=== PATIENT | female | born 1990 | race Caucasian/White ===

== ENCOUNTER 2023-12-25 16:27 | Inpatient (IN) | payer BC, SELFPAY ==
[2023-12-25] VITALS (12 sets, daily range): BP systolic 91–124; BP diastolic 66–94; PULSE 69–108; RESP 16–18; TEMP 36.3–36.9; O2SAT 100; BMI 25.1; BMI 22.0
--- NOTE | 2023-12-25 17:07 | ED.GENADULT ---
HPI - General Adult General Chief complaint: Unspecified Complaint, Adult Stated complaint: lab work Time Seen by Provider: 12/25/23 16:31 History of Present Illness HPI narrative: This 33-year-old female comes in requesting lab work because of a overdose of Tylenol. She had a severe toothache and was taking 4 extra-strength Tylenol every 4 hours starting 4 days ago. The next day, 3 days ago, she took 6 tablets every 4 hours until evening. She stopped taking Tylenol at the end of 3 days ago. Two days ago she was not feeling well with nausea and some vomiting. Today she states that she has no nausea and vomiting and also does not have a toothache any longer. She has not been able to get in to see her dentist yet. She states that she does not drink alcohol. She reports that she is not able to take ibuprofen and did not have awareness that this was an overdose of Tylenol. A friend spoke with her recently and said she should have labs done because of liver toxicity from Tylenol. Related Data Home Medications Medication Instructions Recorded Confirmed control PO 06/10/23 Allergies Allergy/AdvReac Type Severity Reaction Status Date / Time No Known Drug Allergies Allergy Verified 06/10/23 17:04 Review of Systems Status of ROS: Reports: 10 or more systems reviewed and unremarkable except as noted in History and below Narrative: Constitutional: No fevers, no weight gain or loss. Eyes: No discharge. No vision changes. HENT: No congestion, no sore throat, no ear pain. Cardiovascular: No chest pain, no palpitations. Respiratory: No shortness of breath, no wheezes, no cough. Gastrointestinal: No abdominal pain . Currently no vomiting or nausea but she did have these a couple days ago. Genitourinary: No dysuria, no hematuria. Musculoskeletal: Normal range of motion. Skin: No rashes, no pruritis. Neurological: No dizziness, weakness, sensory change, speech change. Endo/Heme/Allergies: No bruising or bleeding. No polydipsia. Pysch: no suicidality, no anxiety, no insomnia. All other systems reviewed and are negative. PFSH PFSH Social History Non-prescribed substance use: denies use Exam Narrative: Exam Narrative: Constitutional: Well-developed, well-nourished, no acute distress. HEENT: Normocephalic, atraumatic. Neck: Normal range of motion. Nontender. Supple. Heart: Regular. No murmurs. Tachycardia. Intact distal pulses. Lungs: Clear to auscultation. No chest discomfort. No wheezes, rhonchi, or rales. Abdomen: Normal bowel sounds. Nontender. No rebound tenderness. Genitalia: Deferred. Back: No midline tenderness. Normal range of motion. Extremities: Normal range of motion. No injury. Skin: Intact. No rash. Warm. No erythema or pallor. Neurologic: No altered sensation. No weakness. Alert and oriented. Psychiatric: No suicidality. No anxiety or depression. No insomnia. Nursing notes and vitals signs are reviewed. Const: Vital Signs, click to edit/add: Vital Signs - 24 hr 12/25/23 16:32 Temperature 97.4 F L Pulse Rate [Pulse Oximeter] 108 H Respiratory Rate 18 Blood Pressure [Le ft Upper Arm] 91/66 Pulse Oximetry 100 Oxygen Delivery Me thod Room Air Course Vital Signs Vital signs: Initial Vital Signs Temperature 97.4 F L 12/25/23 16:32 Temperature Source Temporal Artery Scan 12/25/23 16:32 Pulse Rate 108 H 12/25/23 16:32 Respiratory Rate 18 12/25/23 16:32 Blood Pressure 91/66 12/25/23 16:32 Blood Pressure Mean 74 12/25/23 16:32 Blood Pressure Position Sitting 12/25/23 16:32 Pulse Oximetry 100 12/25/23 16:32 Oxygen Delivery Method Room Air 12/25/23 16:32 Vital Signs Temperature 97.4 F L 12/25/23 16:32 Pulse Rate 108 H 12/25/23 16:32 Respiratory Rate 18 12/25/23 16:32 Blood Pressure 91/66 12/25/23 16:32 Pulse Oximetry 100 12/25/23 16:32 Oxygen Delivery Method Room Air 12/25/23 16:32 Temperature 97.4 F L 12/25/23 16:32 Pulse Rate 108 H 12/25/23 16:32 Respiratory Rate 18 12/25/23 16:32 Blood Pressure 91/66 12/25/23 16:32 Pulse Oximetry 100 12/25/23 16:32 Oxygen Delivery Method Room Air 12/25/23 16:32 Medical Decision Making MDM Narrative Medical decision making narrative: This patient took approximately 12 g of Tylenol 5 days ago and approximately 18 g the next day. Labs are acquired here and do show evidence of injury to her liver. Notable labs show an AST at 1658 and ALT at 1371. Her creatinine is 2.7. INR returns at 1.3. She does not have an anion gap and her lactate and amylase are normal. Her amylase is just a couple points above the normal range actually. I spoke with poison Control regarding these findings who recommended admission into the hospital overnight to receive acetylcysteine until liver enzymes improved from these current numbers. She can be discharged home after that. I spoke with Dr. Love regarding this and he agrees to this plan. Lab Data Labs: Lab Results 12/25/23 12/25/23 12/25/23 Range/Units 17:04 17:04 17:04 WBC 2.92 L (4.50-11.00) K/uL RBC 4.06 (4.00-5.20) m/uL Hgb 12.5 (12.0-16.0) gm/dL Hct 38.5 (33.0-51.0) % MCV 95 (80-100) fL MCH 31 (26-34) pg MCHC 33 (32-36) gm/dL RDW Coeff of [place] 16.6 H (11.5-15.5) % Plt Count 250 (140-440) K/uL Neut % (Auto) 54.5 (42.0-72.0) % Lymph % (Auto) 39.0 (20-44) % [place] % (Auto) 6.2 (0.0-11.0) % Eos % (Auto) 0.0 (0.0-7.0) % Baso % (Auto) 0.0 (0.0-3.0) % Neut # (Auto) 1.60 L (1.7-7.0) K/uL Lymph # (Auto) 1.10 (0.90-2.90) K/uL [place] # (Auto) 0.20 (0.00-0.90) K/UL Eos # (Auto) 0.00 (0.00-0.50) K/uL Baso # (Auto) 0.00 (0.00-0.30) K/uL Abs Immat Gran (auto) 0.00 (0.00-0.30) K/uL Imm/Tot Granulo (auto) 0.3 % INR 1.31 H (0.91-1.10) Sodium 137 (135-149) mmol/L Potassium 3.9 (3.6-5.1) mmol/L Chloride 110 (96-114) mmol/L Carbon Dioxide 14 L (20-32) mmol/L Anion Gap 13 (7-15) mEq/L BUN 33 H (5-24) mg/dL Creatinine 2.7 H (0.5-1.5) mg/dL Estimated Creat Clear 30.45 Estimated GFR 23 ml/min Glucose 102 (60-115) mg/dL Lactate (0.5-1.9) mmol/L Calcium 9.1 (8.4-10.6) mg/dL Total Bilirubin 0.9 Cancelled (0.1-1.5) mg/dL Direct Bilirubin 0.6 H Cancelled (0.0-0.5) mg/dL AST 1658 H (12-35) U/L ALT (4-35) U/L Alkaline Phosphatase (40-150) U/L Total Protein (6.0-8.3) g/dL Albumin (3.3-5.0) g/dL Amylase (18-89) U/L Lipase (23-300) U/L Urine Color (Yellow) Urine Appearance (Clear) Urine pH (5.0-8.5) Ur Specific [place] (1.000-1.030) Urine Protein (Negative) Urine Glucose (UA) (Negative) Urine Ketones (Negative) Urine Blood (Negative) Urine Nitrite (Negative) Urine Bilirubin (Negative) Urine Urobilinogen (0.2-1.0) Ur Leukocyte Esterase (Negative) Urine RBC (0-2) Urine WBC (0-5) Ur Squamous Epith Cells (None-Few) Amorphous Sediment (None) Urine Bacteria (None) Acetaminophen (10.0-30.0) ug/mL 12/25/23 12/25/23 12/25/23 Range/Units 17:04 17:04 17:04 WBC (4.50-11.00) K/uL RBC (4.00-5.20) m/uL Hgb (12.0-16.0) gm/dL Hct (33.0-51.0) % MCV (80-100) fL MCH (26-34) pg MCHC (32-36) gm/dL RDW Coeff of [place] (11.5-15.5) % Plt Count (140-440) K/uL Neut % (Auto) (42.0-72.0) % Lymph % (Auto) (20-44) % [place] % (Auto) (0.0-11.0) % Eos % (Auto) (0.0-7.0) % Baso % (Auto) (0.0-3.0) % Neut # (Auto) (1.7-7.0) K/uL Lymph # (Auto) (0.90-2.90) K/uL [place] # (Auto) (0.00-0.90) K/UL Eos # (Auto) (0.00-0.50) K/uL Baso # (Auto) (0.00-0.30) K/uL Abs Immat Gran (auto) (0.00-0.30) K/uL Imm/Tot Granulo (auto) % INR (0.91-1.10) Sodium (135-149) mmol/L Potassium (3.6-5.1) mmol/L Chloride (96-114) mmol/L Carbon Dioxide (20-32) mmol/L Anion Gap (7-15) mEq/L BUN (5-24) mg/dL Creatinine (0.5-1.5) mg/dL Estimated Creat Clear Estimated GFR ml/min Glucose (60-115) mg/dL Lactate (0.5-1.9) mmol/L Calcium (8.4-10.6) mg/dL Total Bilirubin (0.1-1.5) mg/dL Direct Bilirubin (0.0-0.5) mg/dL AST Cancelled (12-35) U/L ALT 1371 H Cancelled (4-35) U/L Alkaline Phosphatase 102 Cancelled (40-150) U/L Total Protein 6.8 (6.0-8.3) g/dL Albumin (3.3-5.0) g/dL Amylase (18-89) U/L Lipase (23-300) U/L Urine Color (Yellow) Urine Appearance (Clear) Urine pH (5.0-8.5) Ur Specific [place] (1.000-1.030) Urine Protein (Negative) Urine Glucose (UA) (Negative) Urine Ketones (Negative) Urine Blood (Negative) Urine Nitrite (Negative) Urine Bilirubin (Negative) Urine Urobilinogen (0.2-1.0) Ur Leukocyte Esterase (Negative) Urine RBC (0-2) Urine WBC (0-5) Ur Squamous Epith Cells (None-Few) Amorphous Sediment (None) Urine Bacteria (None) Acetaminophen (10.0-30.0) ug/mL 12/25/23 12/25/23 12/25/23 Range/Units 17:04 17:04 17:04 WBC (4.50-11.00) K/uL RBC (4.00-5.20) m/uL Hgb (12.0-16.0) gm/dL Hct (33.0-51.0) % MCV (80-100) fL MCH (26-34) pg MCHC (32-36) gm/dL RDW Coeff of [place] (11.5-15.5) % Plt Count (140-440) K/uL Neut % (Auto) (42.0-72.0) % Lymph % (Auto) (20-44) % [place] % (Auto) (0.0-11.0) % Eos % (Auto) (0.0-7.0) % Baso % (Auto) (0.0-3.0) % Neut # (Auto) (1.7-7.0) K/uL Lymph # (Auto) (0.90-2.90) K/uL [place] # (Auto) (0.00-0.90) K/UL Eos # (Auto) (0.00-0.50) K/uL Baso # (Auto) (0.00-0.30) K/uL Abs Immat Gran (auto) (0.00-0.30) K/uL Imm/Tot Granulo (auto) % INR (0.91-1.10) Sodium (135-149) mmol/L Potassium (3.6-5.1) mmol/L Chloride (96-114) mmol/L Carbon Dioxide (20-32) mmol/L Anion Gap (7-15) mEq/L BUN (5-24) mg/dL Creatinine (0.5-1.5) mg/dL Estimated Creat Clear Estimated GFR ml/min Glucose (60-115) mg/dL Lactate (0.5-1.9) mmol/L Calcium (8.4-10.6) mg/dL Total Bilirubin (0.1-1.5) mg/dL Direct Bilirubin (0.0-0.5) mg/dL AST (12-35) U/L ALT (4-35) U/L Alkaline Phosphatase (40-150) U/L Total Protein Cancelled (6.0-8.3) g/dL Albumin 3.6 Cancelled (3.3-5.0) g/dL Amylase 92 H (18-89) U/L Lipase 259 Cancelled (23-300) U/L Urine Color (Yellow) Urine Appearance (Clear) Urine pH (5.0-8.5) Ur Specific [place] (1.000-1.030) Urine Protein (Negative) Urine Glucose (UA) (Negative) Urine Ketones (Negative) Urine Blood (Negative) Urine Nitrite (Negative) Urine Bilirubin (Negative) Urine Urobilinogen (0.2-1.0) Ur Leukocyte Esterase (Negative) Urine RBC (0-2) Urine WBC (0-5) Ur Squamous Epith Cells (None-Few) Amorphous Sediment (None) Urine Bacteria (None) Acetaminophen < 10.0 L (10.0-30.0) ug/mL 12/25/23 12/25/23 Range/Units 17:35 17:42 WBC (4.50-11.00) K/uL RBC (4.00-5.20) m/uL Hgb (12.0-16.0) gm/dL Hct (33.0-51.0) % MCV (80-100) fL MCH (26-34) pg MCHC (32-36) gm/dL RDW Coeff of [place] (11.5-15.5) % Plt Count (140-440) K/uL Neut % (Auto) (42.0-72.0) % Lymph % (Auto) (20-44) % [place] % (Auto) (0.0-11.0) % Eos % (Auto) (0.0-7.0) % Baso % (Auto) (0.0-3.0) % Neut # (Auto) (1.7-7.0) K/uL Lymph # (Auto) (0.90-2.90) K/uL [place] # (Auto) (0.00-0.90) K/UL Eos # (Auto) (0.00-0.50) K/uL Baso # (Auto) (0.00-0.30) K/uL Abs Immat Gran (auto) (0.00-0.30) K/uL Imm/Tot Granulo (auto) % INR (0.91-1.10) Sodium (135-149) mmol/L Potassium (3.6-5.1) mmol/L Chloride (96-114) mmol/L Carbon Dioxide (20-32) mmol/L Anion Gap (7-15) mEq/L BUN (5-24) mg/dL Creatinine (0.5-1.5) mg/dL Estimated Creat Clear Estimated GFR ml/min Glucose (60-115) mg/dL Lactate 1.6 (0.5-1.9) mmol/L Calcium (8.4-10.6) mg/dL Total Bilirubin (0.1-1.5) mg/dL Direct Bilirubin (0.0-0.5) mg/dL AST (12-35) U/L ALT (4-35) U/L Alkaline Phosphatase (40-150) U/L Total Protein (6.0-8.3) g/dL Albumin (3.3-5.0) g/dL Amylase (18-89) U/L Lipase (23-300) U/L Urine Color Yellow (Yellow) Urine Appearance Clear (Clear) Urine pH 5.5 (5.0-8.5) Ur Specific [place] 1.025 (1.000-1.030) Urine Protein 2+ A (Negative) Urine Glucose (UA) Negative (Negative) Urine Ketones Trace A (Negative) Urine Blood Trace-intact A (Negative) Urine Nitrite Negative (Negative) Urine Bilirubin 1+ A (Negative) Urine Urobilinogen 0.2 (0.2-1.0) Ur Leukocyte Esterase Negative (Negative) Urine RBC 0-2 (0-2) Urine WBC 0-2 (0-5) Ur Squamous Epith Cells Few (None-Few) Amorphous Sediment Moderate A (None) Urine Bacteria Few A (None) Acetaminophen (10.0-30.0) ug/mL Discharge Plan Discharge Clinical Impression: Tylenol overdose Patient Disposition: Admitted As Observation Condition: Unchanged Prescriptions: No Action control PO Follow Up/Referrals: Provider,Not a Local [Primary Care Provider] -
[2023-12-25 17:13] LABS: Hematocrit 38.5 % (33.0-51.0); Hemoglobin* 12.5 gm/dL (12.0-16.0); Immature Granulocytes Pct Auto 0.3 %; Mean Corpuscular HGB Conc 33 gm/dL (32-36); Mean Corpuscular Hemoglobin 31 pg (26-34); Mean Corpuscular Volume 95 fL (80-100); Monocytes Percent Auto 6.2 % (0.0-11.0); Neutrophils Percent Auto 54.5 % (42.0-72.0); Platelet Count* 250 K/uL (140-440); RDW Coefficient of Variation % 16.6 % (11.5-15.5); Red Blood Count 4.06 m/uL (4.00-5.20); White Blood Count* 2.92 K/uL (4.50-11.00)
[2023-12-25 17:21] LABS: Slide Review Reflex No
[2023-12-25 17:32] LABS: Chloride* 110 mmol/L (96-114)
[2023-12-25 17:33] LABS: Albumin* 3.6 g/dL (3.3-5.0)
[2023-12-25 17:34] LABS: INR 1.31 (0.91-1.10); Potassium* 3.9 mmol/L (3.6-5.1); Prothrombin Time 17.1 Seconds; Sodium* 137 mmol/L (135-149)
[2023-12-25 17:36] LABS: Alkaline Phosphatase* 102 U/L (40-150); Amylase* 92 U/L (18-89); Anion Gap 13 mEq/L (7-15); Bilirubin Direct* 0.6 mg/dL (0.0-0.5); Bilirubin Total* 0.9 mg/dL (0.1-1.5); Blood Urea Nitrogen* 33 mg/dL (5-24); Carbon Dioxide* 14 mmol/L (20-32); Creatinine* 2.7 mg/dL (0.5-1.5); Est. Creatinine Clearance* 30.45; Estimated Glomerular Filt Rate 23 ml/min; Glucose* 102 mg/dL (60-115); Total Protein* 6.8 g/dL (6.0-8.3)
[2023-12-25 17:37] LABS: Calcium* 9.1 mg/dL (8.4-10.6); Lipase* 259 U/L (23-300)
[2023-12-25 17:38] LABS: Lactate* 1.6 mmol/L (0.5-1.9)
[2023-12-25 17:39] LABS: Acetaminophen* < 10.0 ug/mL (10.0-30.0)
[2023-12-25 17:56] LABS: Appearance Urine Clear (Clear); Bilirubin Urine 1+ (Negative); Blood Urine Trace-intact (Negative); Color Urine Yellow (Yellow); Glucose Urine Negative (Negative); Ketones Urine Trace (Negative); Leukocyte Esterase Urine Negative (Negative); Nitrite Urine Negative (Negative); Protein Urine 2+ (Negative); Specific Gravity Urine 1.025 (1.000-1.030); Urobilinogen Urine 0.2 (0.2-1.0); pH Urine 5.5 (5.0-8.5)
[2023-12-25 17:57] LABS: Alanine Aminotransferase* 1371 U/L (4-35); Aspartate Amino Transferase* 1658 U/L (12-35)
[2023-12-25 18:13] LABS: Amorphous Sediment Urine Moderate; Bacteria Urine Few; RBC Urine 0-2 (0-2); Squamous Epithelial Cell Urine Few (None-Few); WBC Urine 0-2 (0-5)
[2023-12-25] MEDS: ONDANSETRON 2 MG/ML inj 4 MG IVP (19:21)
--- NOTE | 2023-12-25 20:27 | P.IMHP_ITS ---
Hospitalist- H&P: HPI History of Present Illness Date Seen: 12/25/23 Chief complaint: lab work Narrative: Arlin Null is a 33 year old woman presents to the emergency department requesting lab work for fear of having overdosed on acetaminophen. She reports having had a severe toothache. She has previously had a gastric bypass surgery about 5 or 6 years ago, and was told not to take any nonsteroidal anti-inflammatory medications thereafter, hands she has adhere to that. Un fortunately she takes acetaminophen indiscriminately at times. Such was the case starting about 4 days ago when she took 4 extra-strength Tylenol tabs every 4 hours for roughly 1 day, then 6 extra-strength Tylenol tabs every 4 hours for about a half a day, and then she stop. Does she took about 12 g of Tylenol on day 1 and 18 g of Tylenol on day 2. She is not taking any Tylenol since. Couple of days ago she was not feeling well and had a few episodes of nausea and vomiting. Nausea and vomiting have since resolved as has the toothache. Still has not seen a dentist. Does not consume alcoholic beverages. She spoke with a friend about her condition and situation, and thankfully the friend was astute enough to recommend to the patient that she come in for assessment for possible Tylenol toxicity. Review of Systems Status of ROS: Reports: 10 or more systems reviewed and unremarkable except as noted in History and below Narrative: Is generally healthy without concerns or problems. Since her gastric bypass surgery 5 or 6 years ago she does have intermittent nausea and vomiting which is not unusual for her. Initially did take prescribed vitamins and other prescribe supplements after her bypass surgery, for the 1st 2+ years. She modified her diet and her various levels remain normal in that she has not taken any vitamin or other nutritional supplements for the past 3+ years. She is very satisfied with the gastric bypass. Has maintained her weight loss. Does not have a primary care physician whom she works with. [facility] 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 Enjoys her job. Lives at home with her parents. [facility] Medical History History of obesity ?Z86.39 - Personal history of other endocrine, nutritional and metabolic disease (ICD-10) Surgical History Status following gastric bypass for weight loss ?Z98.84 - Bariatric surgery status (ICD-10) Family History Mother Obesity Social History What is your current living situation?: I presently have a place to live Problems where you live: no known problems Problems where you live details: none In the past 12 months, utilities in danger of being shut off: no In past 12 months, lack of transportation kept you from medical appts, meetings, work, or getting things needed for daily living: no In the past 12 mos, have been you worried that your food would run out before you had money to buy more?: never true In the past 12 mos, the food you bought just didn't last and you didn't have mon ey to buy more?: never true Smoking Status: Never smoker How often do you have a drink containing alcohol: 2-4 times a month Alcohol type: beer and wine How many standard drinks containing alcohol do you have on a typical day: 1 or 2 How often do you have six or more drinks on one occasion: Never AUDIT-C Alcohol total score: 2 Non-prescribed substance use: denies use Caffeine: Yes (soda, tea) How often does anyone, including family, friends and others, physically hurt you : never How often does anyone, including family, friends and others, insult or talk down to you: never How often does anyone, including family, friends and others, threaten you with harm: never How often does anyone, including family, friends and others, scream or curse at you: never service: No Meds Home Medications and Allergies Home Medications Medication Instructions Recorded Confirmed Type control PO 06/10/23 History Allergies Allergy/AdvReac Type Severity Reaction Status Date / Time No Known Drug Allergies Allergy Verified 06/10/23 17:04 Allergies/Adverse Reaction Comments: No known drug allergies. Because of her gastric bypass status, patient has been advised not to take any nonsteroidal anti-inflammatory medications by her gastric bypass surgeon. Exam Narrative: Exam Narrative: Examined patient in the emergency department. Appears comfortable and in no acute distress. Does not appear obese. Vision and hearing are both normal. Alert and oriented to self, place, time, situation. Friendly, articulate, cooperative. No icterus, jaundice, petechiae, or rashes. External auditory canals and tympanic membranes are normal bilaterally. Conjugate gaze. Midline nasal septum. Dentition in good repair. Moist buccal mucosa. Neck is supple. Midline trachea. Normal thyroid. No JVD, hepatojugular reflux, or carotid bruits. No head and neck lymphadenopathy. Lungs are clear to auscultation without wheezing, rhonchi, or rales. Chest wall excursions are full. No CVA tenderness. Heart tones with regular rhythm, normal S1-S2, without murmur, gallop, or rub. PMI not laterally displaced. Abdomen is thin, with active bowel sounds, soft, nontender. No rebound or guarding. No organomegaly or masses. Palpable pulses in upper and lower extremities. Capillary refill less than 3 seconds. No cyanosis. No edema of lower extremities. No focal motor neurologic deficits. Independent in transfer, station, and gait. No tremor, asterixis, or ataxia. Cranial nerves 3-12 grossly normal. Const: Vital Signs, click to edit/add: Vital Signs - 24 hr 12/25/23 16:32 12/25/23 18:32 12/25/23 18:35 Temperature 97.4 F L Pulse Rate 78 Pulse Rate [Pulse Oximeter] 108 H Respiratory Rate 18 Blood Pressure 96/71 Blood Pressure [Le ft Arm] Blood Pressure [Le ft Upper Arm] 91/66 Pulse Oximetry 100 [facility] 12/25/23 18:45 12/25/23 19:00 12/25/23 19:02 Temperature Pulse Rate 83 80 78 Pulse Rate [Pulse Oximeter] Respiratory Rate Blood Pressure 101/78 Blood Pressure [Le ft Arm] Blood Pressure [Le ft Upper Arm] Pulse Oximetry 100 100 [facility] 12/25/23 19:02 12/25/23 19:15 12/25/23 19:30 Temperature Pulse Rate 78 81 85 Pulse Rate [Pulse Oximeter] Respiratory Rate Blood Pressure 101/78 Blood Pressure [Le ft Arm] Blood Pressure [Le ft Upper Arm] Pulse Oximetry 100 100 100 Oxygen Delivery [facility] 12/25/23 19:32 12/25/23 19:46 12/25/23 19:46 Temperature 98.4 F Pulse Rate 90 Pulse Rate [Pulse Oximeter] 69 Respiratory Rate 18 18 Blood Pressure 104/73 Blood Pressure [Le ft Arm] 113/85 Blood Pressure [Le ft Upper Arm] Pulse Oximetry 100 100 100 Oxygen Delivery Me thod Room Air Room Air Documenting provider has reviewed patient's vital signs: yes Hospitalist - H&P: Result Labs Labs: Short CBC 12/25/23 Range/Units 17:04 WBC 2.92 L (4.50-11.00) K/uL Hgb 12.5 (12.0-16.0) gm/dL Hct 38.5 (33.0-51.0) % Plt Count 250 (140-440) K/uL BMP 12/25/23 17:04 Sodium 137 Potassium 3.9 Chloride 110 Carbon Dioxide 14 L BUN 33 H Creatinine 2.7 H Glucose 102 Calcium 9.1 Liver Function 12/25/23 12/25/23 12/25/23 Range/Units 17:04 17:04 17:04 Total Bilirubin 0.9 Cancelled (0.1-1.5) mg/dL Direct Bilirubin 0.6 H Cancelled (0.0-0.5) mg/dL AST 1658 H (12-35) U/L ALT (4-35) U/L Alkaline Phosphatase (40-150) U/L Albumin (3.3-5.0) g/dL 12/25/23 12/25/23 12/25/23 Range/Units 17:04 17:04 17:04 Total Bilirubin (0.1-1.5) mg/dL Direct Bilirubin (0.0-0.5) mg/dL AST Cancelled (12-35) U/L ALT 1371 H Cancelled (4-35) U/L Alkaline Phosphatase 102 Cancelled (40-150) U/L Albumin 3.6 (3.3-5.0) g/dL 12/25/23 Range/Units 17:04 Total Bilirubin (0.1-1.5) mg/dL Direct Bilirubin (0.0-0.5) mg/dL AST (12-35) U/L ALT (4-35) U/L Alkaline Phosphatase (40-150) U/L Albumin Cancelled (3.3-5.0) g/dL Urine 12/25/23 Range/Units 17:42 Urine Color Yellow (Yellow) Urine Appearance Clear (Clear) Urine pH 5.5 (5.0-8.5) Ur Specific [place] 1.025 (1.000-1.030) Urine Protein 2+ A (Negative) Urine Glucose (UA) Negative (Negative) Assessment and Plan Assessment and plan (1) Abnormal liver enzymes: Status: Acute (2) Drug-induced liver injury: Status: Acute (3) Acetaminophen toxicity: Status: Acute (4) Tylenol overdose: Status: Acute (5) Acute kidney injury (nontraumatic): Status: Acute (6) Dehydration: Status: Acute Plan 1. Reviewed impression with patient and her mother who is present with her. Discuss briefly drug-induced liver injury with her. Indicated that her condition is tenuous at this time, however we have hope that we will be able to stabilize her condition and hopefully help her achieve improvement and even resolution of her condition. Should we not be able to achieve such, I have indicated to her and her mother that we may need to consider referral to an appropriate tertiary medical facility. They expressed understanding. 2. Dr. Christopher Johnson, emergency department, spoke with poison Control, who indicated that patient's presentation does not lend itself to use of the acetaminophen nomogram. As such, they recommend initiation of N-acetylcysteine intravenously and monitoring of liver function panel periodically. The goal is to demonstrate that patient's transaminases are trending downward, not static or worsening. Poison Control spokes person indicated they will continue to work with us and call us from time to time, but that we may call them any time if we have any more questions. 3. Administer the 4 hour loading dose of N-acetylcysteine followed by this 16 hour maintenance infusion. Will check LFTs after the 4 hour loading dose, and then while she is still in the 16 hour maintenance infusion will check the LFTs again. Will recheck INR as well as CBC also. 4. I will forego obtaining an acute hepatitis panel at this time. It does not seem clinically relevant in this situation at this time. 5. Normal saline 125 mL/hour x2 L and monitor renal function panel and electrolytes. 6. Patient will need follow up with her dentist regarding her dental pain. 7. Patient is to not use acetaminophen hereafter as she has in the recent few days. Should she require analgesics in the future, consider low-dose acetaminophen such as 650 mg orally 4 times daily maximum and possibly low dose of opioid if warranted and clinically appropriate. Unfortunately her gastric bypass surgery precludes use of nonsteroidal anti-inflammatory medications. 8. Urged patient to establish with a primary care physician. She indicates she has someone in mind already. 9. Patient and mother are agreeable with above stated plans and recommendations.
[2023-12-25 21:09] LABS: Ur HCG Qualitative* Negative (Negative)
[2023-12-25] MEDS: 0.9 % SODIUM CHLORIDE 1000 ml 1,000 ML 125 ML IV (22:49)
[2023-12-25 23:59] LABS: Albumin* 2.8 g/dL (3.3-5.0); Chloride* 112 mmol/L (96-114); Sodium* 135 mmol/L (135-149)
[2023-12-26] LABS: Potassium* 4.3 mmol/L (3.6-5.1)
[2023-12-26 00:02] LABS: Anion Gap 9 mEq/L (7-15); Bilirubin Direct* 0.8 mg/dL (0.0-0.5); Blood Urea Nitrogen* 34 mg/dL (5-24); Calcium* 8.4 mg/dL (8.4-10.6); Carbon Dioxide* 14 mmol/L (20-32); Creatinine* 2.4 mg/dL (0.5-1.5); Est. Creatinine Clearance* 34.26; Estimated Glomerular Filt Rate 27 ml/min; Glucose* 75 mg/dL (60-115); Total Protein* 5.7 g/dL (6.0-8.3)
[2023-12-26 00:04] LABS: Alkaline Phosphatase* < 20 U/L (40-150)
[2023-12-26 00:16] LABS: Alanine Aminotransferase* 1021 U/L (4-35); Aspartate Amino Transferase* 1096 U/L (12-35)
[2023-12-26 03:00] VITALS: BP 118/69; PULSE 82; RESP 16; TEMP 37.1; O2SAT 100
[2023-12-26 06:32] LABS: Hemoglobin* 9.8 gm/dL (12.0-16.0); Mean Corpuscular HGB Conc 34 gm/dL (32-36); Mean Corpuscular Hemoglobin 31 pg (26-34); Mean Corpuscular Volume 92 fL (80-100); Platelet Count* 183 K/uL (140-440); Red Blood Count 3.16 m/uL (4.00-5.20); White Blood Count* 3.62 K/uL (4.50-11.00)
[2023-12-26 06:33] LABS: Slide Review Reflex No
[2023-12-26] MEDS: 0.9 % SODIUM CHLORIDE 1000 ml 1,000 ML 125 ML IV ×3 (06:34→23:31)
--- NOTE | 2023-12-26 06:42 | PC.NURSE ---
Pt rested well during shift, tolerated IV meds, no N/V or pain noted, voiding and tolerating PO intake. IND in room.
[2023-12-26 06:45] LABS: Albumin* 2.4 g/dL (3.3-5.0); Chloride* 111 mmol/L (96-114); Sodium* 135 mmol/L (135-149)
[2023-12-26 06:46] LABS: INR 1.46 (0.91-1.10); Prothrombin Time 18.7 Seconds
[2023-12-26 06:47] LABS: Creatinine* 2.4 mg/dL (0.5-1.5); Est. Creatinine Clearance* 34.26; Estimated Glomerular Filt Rate 27 ml/min
[2023-12-26 06:48] LABS: Alkaline Phosphatase* 56 U/L (40-150); Anion Gap 13 mEq/L (7-15); Bilirubin Direct* 0.7 mg/dL (0.0-0.5); Bilirubin Total* 0.7 mg/dL (0.1-1.5); Blood Urea Nitrogen* 31 mg/dL (5-24); Carbon Dioxide* 11 mmol/L (20-32); Glucose* 87 mg/dL (60-115); Potassium* 3.4 mmol/L (3.6-5.1)
[2023-12-26 06:49] LABS: Calcium* 8.1 mg/dL (8.4-10.6)
[2023-12-26 07:04] LABS: Aspartate Amino Transferase* 827 U/L (12-35)
[2023-12-26 07:29] LABS: Alanine Aminotransferase* 795 U/L (4-35)
[2023-12-26 08:20] VITALS: BP 104/71; PULSE 73; RESP 16; TEMP 36.4; O2SAT 100
[2023-12-26] MEDS: 0.9 % SODIUM CHLORIDE 500 ML 500 ML IV (08:59)
[2023-12-26 11:00] VITALS: BP 119/78; PULSE 83; RESP 16; TEMP 36.8; O2SAT 100
--- NOTE | 2023-12-26 13:00 | CRLHL7_ITS ---
For Patients: As a result of the Century Cures Act, medical imaging exams and procedure reports are released immediately into your electronic medical record. You may view this report before your referring provider. If you have questions, please contact your health care provider. INDICATION: ELEVATED LFTs S/P APAP CONSUMPTION COMPARISON: CT 01/02/2022 TECHNIQUE: Real time mann scale imaging and color Doppler analysis was performed of the right upper quadrant. FINDINGS: The patient`s liver is of normal size and has uniform echogenicity. There is a normal appearance of the hepatic IVC and proximal abdominal aorta. There is no evidence of ascites. The gallbladder is of normal size and there is no evidence of intraluminal stones or sludge. The gallbladder wall measures 2.6 mm in thickness. The common bile duct is of normal size and measures 3.9 mm in diameter at the level of the aneesh hepatis. The pancreas appears normal. There is no evidence of a stone or hydronephrosis within the right kidney. The right kidney measures 11.7 cm in length. IMPRESSION: Normal right upper quadrant ultrasound. Dictated by Grabiel Doan MD @ 12/26/2023 3:15:05 PM (Electronically Signed)
[2023-12-26 13:31] LABS: Albumin* 2.6 g/dL (3.3-5.0); Chloride* 113 mmol/L (96-114); Sodium* 136 mmol/L (135-149)
[2023-12-26 13:32] LABS: Potassium* 3.5 mmol/L (3.6-5.1)
[2023-12-26 13:34] LABS: Alanine Aminotransferase* 700 U/L (4-35); Alkaline Phosphatase* 63 U/L (40-150); Anion Gap 13 mEq/L (7-15); Bilirubin Direct* 0.7 mg/dL (0.0-0.5); Bilirubin Total* 0.8 mg/dL (0.1-1.5); Blood Urea Nitrogen* 29 mg/dL (5-24); Calcium* 8.2 mg/dL (8.4-10.6); Carbon Dioxide* 10 mmol/L (20-32); Creatinine* 2.3 mg/dL (0.5-1.5); Est. Creatinine Clearance* 35.75; Estimated Glomerular Filt Rate 28 ml/min; Glucose* 90 mg/dL (60-115); Total Protein* 5.3 g/dL (6.0-8.3)
[2023-12-26 13:46] LABS: Aspartate Amino Transferase* 699 U/L (12-35)
--- NOTE | 2023-12-26 14:07 | PM.IMPN1 ---
Progress Note: A&P Assessment and plan (1) Abnormal liver enzymes: Problem details: - 2/2 APAP toxicity - improving, abdominal ultrasound pending - will d/c NAC per recommendations from Status: Acute (2) Acute kidney injury (nontraumatic): Problem details: - presumably pre-renal 2/2 nausea/vomiting that was present prior to ED visit - making urine at this time, creatinine trending downward - continue IVFs, continue to follow Status: Acute (3) Drug-induced liver injury: Status: Acute (4) Acetaminophen toxicity: Status: Acute (5) Dehydration: Status: Acute Plan - per above - likely home tomorrow Subjective Date Seen: 12/26/23 Interval history: Arlin was admitted last night for an accidental Tylenol overdose. N-acetylcysteine was initiated overnight and is continued this morning. LFTs are improving. Arlin feels good, has no concerns for hospitalist team this morning. Exam Narrative: Exam Narrative: GEN: Alert and oriented, sitting comfortably in bed, nontoxic HEENT: EOMIs bilaterally, no scleral icterus CV: RRR, No concerning murmurs R: LCTA bilaterally without concerning wheezing, air movement adequate Ab: soft, tolerates palpation Ext: wwp, no concerning edema Skin: No concerning skin lesions or rashes on exposed skin Neuro: Nonfocal Psych: Appropriate Const: Vital Signs, click to edit/add: Vital Signs - 24 hr 12/25/23 16:32 12/25/23 18:32 12/25/23 18:35 Temperature 97.4 F L Pulse Rate 78 Pulse Rate [Pulse Oximeter] 108 H Respiratory Rate 18 Blood Pressure 96/71 Blood Pressure [Le ft Arm] Blood Pressure [Le ft Upper Arm] 91/66 Pulse Oximetry 100 100 Oxygen Delivery Me thod Room Air 12/25/23 18:45 12/25/23 19:00 12/25/23 19:02 Temperature Pulse Rate 83 80 78 Pulse Rate [Pulse Oximeter] Respiratory Rate Blood Pressure 101/78 Blood Pressure [Le ft Arm] Blood Pressure [Le ft Upper Arm] Pulse Oximetry 100 100 100 Oxygen Delivery Me thod 12/25/23 19:02 12/25/23 19:15 12/25/23 19:30 Temperature Pulse Rate 78 81 85 Pulse Rate [Pulse Oximeter] Respiratory Rate Blood Pressure 101/78 Blood Pressure [Le ft Arm] Blood Pressure [Le ft Upper Arm] Pulse Oximetry 100 100 100 Oxygen Delivery Me thod 12/25/23 19:32 12/25/23 19:46 12/25/23 19:46 Temperature 98.4 F Pulse Rate 90 Pulse Rate [Pulse Oximeter] 69 Respiratory Rate 18 18 Blood Pressure 104/73 Blood Pressure [Le ft Arm] 113/85 Blood Pressure [Le ft Upper Arm] Pulse Oximetry 100 100 100 Oxygen Delivery Me thod Room Air Room Air 12/25/23 22:27 12/25/23 23:00 12/26/23 03:00 Temperature 98.4 F 98.7 F Pulse Rate Pulse Rate [Pulse Oximeter] 83 82 Respiratory Rate 18 16 16 Blood Pressure Blood Pressure [Le ft Arm] 124/94 H 118/69 Blood Pressure [Le ft Upper Arm] Pulse Oximetry 100 100 100 Oxygen Delivery Me thod Room Air Room Air Room Air 12/26/23 08:20 12/26/23 08:20 12/26/23 11:00 Temperature 97.6 F 98.2 F Pulse Rate Pulse Rate [Pulse Oximeter] 73 83 Respiratory Rate 16 16 16 Blood Pressure Blood Pressure [Le ft Arm] 104/71 119/78 Blood Pressure [Le ft Upper Arm] Pulse Oximetry 100 100 100 Oxygen Delivery Me thod Room Air Room Air Room Air Labs Labs: Laboratory Results - last 24 hr 12/25/23 12/25/23 12/25/23 17:04 17:04 17:04 WBC 2.92 L RBC 4.06 Hgb 12.5 Hct 38.5 MCV 95 MCH 31 MCHC 33 RDW Coeff of Salvatore 16.6 H Plt Count 250 Neut % (Auto) 54.5 Lymph % (Auto) 39.0 [place] % (Auto) 6.2 Eos % (Auto) 0.0 Baso % (Auto) 0.0 Neut # (Auto) 1.60 L Lymph # (Auto) 1.10 [place] # (Auto) 0.20 Eos # (Auto) 0.00 Baso # (Auto) 0.00 Abs Immat Gran (auto) 0.00 Imm/Tot Granulo (auto) 0.3 INR 1.31 H Sodium 137 Potassium 3.9 Chloride 110 Carbon Dioxide 14 L Anion Gap 13 BUN 33 H Creatinine 2.7 H Estimated Creat Clear 30.45 Estimated GFR 23 Glucose 102 Lactate Calcium 9.1 Total Bilirubin 0.9 Cancelled Direct Bilirubin 0.6 H Cancelled AST 1658 H ALT Alkaline Phosphatase Total Protein Albumin Amylase Lipase Urine Color Urine Appearance Urine pH Ur Specific [place] Urine Protein Urine Glucose (UA) Urine Ketones Urine Blood Urine Nitrite Urine Bilirubin Urine Urobilinogen Ur Leukocyte Esterase Urine RBC Urine WBC Ur Squamous Epith Cells Amorphous Sediment Urine Bacteria Urine HCG, Qual Acetaminophen Lab Acknowledgement 12/25/23 12/25/23 12/25/23 17:04 17:04 17:04 WBC RBC Hgb Hct MCV MCH MCHC RDW Coeff of Salvatore Plt Count Neut % (Auto) Lymph % (Auto) [place] % (Auto) Eos % (Auto) Baso % (Auto) Neut # (Auto) Lymph # (Auto) [place] # (Auto) Eos # (Auto) Baso # (Auto) Abs Immat Gran (auto) Imm/Tot Granulo (auto) INR Sodium Potassium Chloride Carbon Dioxide Anion Gap BUN Creatinine Estimated Creat Clear Estimated GFR Glucose Lactate Calcium Total Bilirubin Direct Bilirubin AST Cancelled ALT 1371 H Cancelled Alkaline Phosphatase 102 Cancelled Total Protein 6.8 Albumin Amylase Lipase Urine Color Urine Appearance Urine pH Ur Specific [place] Urine Protein Urine Glucose (UA) Urine Ketones Urine Blood Urine Nitrite Urine Bilirubin Urine Urobilinogen Ur Leukocyte Esterase Urine RBC Urine WBC Ur Squamous Epith Cells Amorphous Sediment Urine Bacteria Urine HCG, Qual Acetaminophen Lab Acknowledgement 12/25/23 12/25/23 12/25/23 17:04 17:04 17:04 WBC RBC Hgb Hct MCV MCH MCHC RDW Coeff of Salvatore Plt Count Neut % (Auto) Lymph % (Auto) [place] % (Auto) Eos % (Auto) Baso % (Auto) Neut # (Auto) Lymph # (Auto) [place] # (Auto) Eos # (Auto) Baso # (Auto) Abs Immat Gran (auto) Imm/Tot Granulo (auto) INR Sodium Potassium Chloride Carbon Dioxide Anion Gap BUN Creatinine Estimated Creat Clear Estimated GFR Glucose Lactate Calcium Total Bilirubin Direct Bilirubin AST ALT Alkaline Phosphatase Total Protein Cancelled Albumin 3.6 Cancelled Amylase 92 H Lipase 259 Cancelled Urine Color Urine Appearance Urine pH Ur Specific [place] Urine Protein Urine Glucose (UA) Urine Ketones Urine Blood Urine Nitrite Urine Bilirubin Urine Urobilinogen Ur Leukocyte Esterase Urine RBC Urine WBC Ur Squamous Epith Cells Amorphous Sediment Urine Bacteria Urine HCG, Qual Acetaminophen < 10.0 L Lab Acknowledgement 12/25/23 12/25/23 12/25/23 17:35 17:42 20:53 WBC RBC Hgb Hct MCV MCH MCHC RDW Coeff of Salvatore Plt Count Neut % (Auto) Lymph % (Auto) [place] % (Auto) Eos % (Auto) Baso % (Auto) Neut # (Auto) Lymph # (Auto) [place] # (Auto) Eos # (Auto) Baso # (Auto) Abs Immat Gran (auto) Imm/Tot Granulo (auto) INR Sodium Potassium Chloride Carbon Dioxide Anion Gap BUN Creatinine Estimated Creat Clear Estimated GFR Glucose Lactate 1.6 Calcium Total Bilirubin Direct Bilirubin AST ALT Alkaline Phosphatase Total Protein Albumin Amylase Lipase Urine Color Yellow Urine Appearance Clear Urine pH 5.5 Ur Specific [place] 1.025 Urine Protein 2+ A Urine Glucose (UA) Negative Urine Ketones Trace A Urine Blood Trace-intact A Urine Nitrite Negative Urine Bilirubin 1+ A Urine Urobilinogen 0.2 Ur Leukocyte Esterase Negative Urine RBC 0-2 Urine WBC 0-2 Ur Squamous Epith Cells Few Amorphous Sediment Moderate A Urine Bacteria Few A Urine HCG, Qual Negative Acetaminophen Lab Acknowledgement Test Added 12/25/23 12/26/23 12/26/23 23:40 06:16 13:07 WBC 3.62 L RBC 3.16 L Hgb 9.8 L Hct 29.0 L MCV 92 MCH 31 MCHC 34 RDW Coeff of Salvatore Plt Count 183 Neut % (Auto) Lymph % (Auto) [place] % (Auto) Eos % (Auto) Baso % (Auto) Neut # (Auto) Lymph # (Auto) [place] # (Auto) Eos # (Auto) Baso # (Auto) Abs Immat Gran (auto) Imm/Tot Granulo (auto) INR 1.46 H Sodium 135 135 136 Potassium 4.3 3.4 L 3.5 L Chloride 112 111 113 Carbon Dioxide 14 L 11 L 10 L Anion Gap 9 13 13 BUN 34 H 31 H 29 H Creatinine 2.4 H 2.4 H 2.3 H Estimated Creat Clear 34.26 34.26 35.75 Estimated GFR 27 27 28 Glucose 75 87 90 Lactate Calcium 8.4 8.1 L 8.2 L Total Bilirubin 1.0 0.7 0.8 Direct Bilirubin 0.8 H 0.7 H 0.7 H AST 1096 H 827 H 699 H ALT 1021 H 795 H 700 H Alkaline Phosphatase < 20 L 56 63 Total Protein 5.7 L 5.0 L 5.3 L Albumin 2.8 L 2.4 L 2.6 L Amylase Lipase Urine Color Urine Appearance Urine pH Ur Specific [place] Urine Protein Urine Glucose (UA) Urine Ketones Urine Blood Urine Nitrite Urine Bilirubin Urine Urobilinogen Ur Leukocyte Esterase Urine RBC Urine WBC Ur Squamous Epith Cells Amorphous Sediment Urine Bacteria Urine HCG, Qual Acetaminophen Lab Acknowledgement
[2023-12-26 15:00] VITALS: BP 130/88; PULSE 65; RESP 16; TEMP 36.7; O2SAT 100
[2023-12-26 19:00] VITALS: BP 122/86; PULSE 78; RESP 16; TEMP 36.7; O2SAT 100
--- NOTE | 2023-12-26 19:49 | PC.NURSE ---
Pt has no complaints. Denies pain. UO increasing through day. Tolerates regular diet.
[2023-12-26 22:51] VITALS: RESP 16; O2SAT 100
[2023-12-27 02:24] VITALS: RESP 16
--- NOTE | 2023-12-27 05:13 | PC.NURSE ---
[id number] Pt slept well during night. no pain, N/V noted, tolerating PO intake.
[2023-12-27 05:38] LABS: Appearance Urine Clear (Clear); Bilirubin Urine Negative (Negative); Blood Urine Negative (Negative); Color Urine Yellow (Yellow); Glucose Urine Negative (Negative); Ketones Urine Negative (Negative); Leukocyte Esterase Urine Trace (Negative); Nitrite Urine Negative (Negative); Protein Urine Negative (Negative); Urobilinogen Urine 0.2 (0.2-1.0); pH Urine 5.5 (5.0-8.5)
[2023-12-27 05:48] LABS: Bacteria Urine Few; RBC Urine 0-2 (0-2); Squamous Epithelial Cell Urine Few (None-Few)
[2023-12-27 06:02] LABS: Total Protein Urine Random* 13 mg/dL
[2023-12-27 06:21] LABS: Eosinophils Percent Auto 0.6 % (0.0-7.0); Hematocrit 31.2 % (33.0-51.0); Hemoglobin* 10.2 gm/dL (12.0-16.0); Immature Granulocytes Pct Auto 0.3 %; Mean Corpuscular HGB Conc 33 gm/dL (32-36); Mean Corpuscular Hemoglobin 31 pg (26-34); Mean Corpuscular Volume 94 fL (80-100); Monocytes Percent Auto 14.1 % (0.0-11.0); Platelet Count* 189 K/uL (140-440); RDW Coefficient of Variation % 16.8 % (11.5-15.5); Red Blood Count 3.32 m/uL (4.00-5.20); White Blood Count* 3.61 K/uL (4.50-11.00)
[2023-12-27 06:22] LABS: Slide Review Reflex No
[2023-12-27 06:36] LABS: Albumin* 2.7 g/dL (3.3-5.0); Chloride* 116 mmol/L (96-114)
[2023-12-27 06:37] LABS: INR 1.23 (0.91-1.10); Potassium* 3.4 mmol/L (3.6-5.1); Prothrombin Time 16.3 Seconds; Sodium* 138 mmol/L (135-149)
[2023-12-27 06:39] LABS: Alanine Aminotransferase* 614 U/L (4-35); Alkaline Phosphatase* 71 U/L (40-150); Anion Gap 10 mEq/L (7-15); Aspartate Amino Transferase* 528 U/L (12-35); Bilirubin Total* 0.7 mg/dL (0.1-1.5); Blood Urea Nitrogen* 22 mg/dL (5-24); Carbon Dioxide* 12 mmol/L (20-32); Creatinine* 1.9 mg/dL (0.5-1.5); Est. Creatinine Clearance* 43.28; Estimated Glomerular Filt Rate 36 ml/min; Glucose* 80 mg/dL (60-115); Total Protein* 5.8 g/dL (6.0-8.3)
[2023-12-27 06:40] LABS: Calcium* 8.6 mg/dL (8.4-10.6)
--- NOTE | 2023-12-27 07:22 | PM.DS1 ---
DS: Providers Provider Date Seen: 12/27/23 Date of admission: 12/25/23 19:54 Primary care physician: Not a Local Provider Admitting Clinician: Garrick Love MD Attending Physician on discharge: Mala Myers MD Date of Discharge: 12/27/23 DS: Diagnosis Discharge Diagnosis (1) Drug-induced liver injury: Status: Acute Problem details: - accidental APAP overdose - reassuring RUQ ultrasound on 12/26 - treated with NAC (2) Abnormal liver enzymes: Status: Acute Problem details: - trended downward during stay (3) Acute kidney injury (nontraumatic): Status: Acute Problem details: - presumably pre-renal 12/27 nausea/vomiting that was present prior to ED visit (vs underlying kidney disease) - made urine during stay, initial UA + for proteinuria, repeat UA wnl DS: Summary Hospital Course Hospital Course: Patient is a very pleasant 33-year-old female who presented to the emergency room with nausea and vomiting, concern for accidental Tylenol overdose the week prior (was taking for pain). APAP level normal upon admission; LFTs elevated. Treated with NAC per Poison Control recommendations and LFTs trended downward. RUQ ultrasound reassuring. Also noted to have elevated creatinine during stay (unclear if PHILL vs CKD). This also improved with IVF rehydration, not yet normal (Creatinine 1.9 upon discharge). Patient will f/u with PCP regarding findings. Recommendations for f/u provider: - recheck CMP next week - consider further workup with Nephrology if renal function has not normalized Status at Discharge Functional status at discharge: independent ambulation Overall status at discharge: patient is back to baseline Time Spent with Patient Time attestation: Total time spent providing and/or coordinating discharge services: Time spent: Greater than 30 minutes Specific discharge activities: Patient education, f/u recommendations Exam Narrative: Exam Narrative: GEN: Alert and oriented, sitting comfortably in bed HEENT: EOMIs bilaterally, no scleral icterus CV: RRR, No concerning murmurs R: LCTA bilaterally without concerning wheezing, air movement adequate Ab: Soft and nontender Skin: No jaundice Neuro: Nonfocal Psych: Appropriate Const: Vital Signs, click to edit/add: Vital Signs - 24 hr 12/26/23 08:20 12/26/23 08:20 12/26/23 11:00 Temperature 97.6 F 98.2 F Pulse Rate [Pulse Oximeter] 73 83 Respiratory Rate 16 16 16 Blood Pressure [Le ft Arm] 104/71 119/78 Pulse Oximetry 100 100 100 Oxygen Delivery Me thod Room Air Room Air Room Air 12/26/23 15:00 12/26/23 15:00 12/26/23 19:00 Temperature 98.1 F 98.0 F Pulse Rate [Pulse Oximeter] 65 78 Respiratory Rate 16 16 16 Blood Pressure [Le ft Arm] 130/88 122/86 Pulse Oximetry 100 100 100 Oxygen Delivery Me thod Room Air Room Air Room Air 12/26/23 22:51 12/26/23 22:51 12/27/23 02:24 Temperature Pulse Rate [Pulse Oximeter] Respiratory Rate 16 16 16 Blood Pressure [Le ft Arm] Pulse Oximetry 100 100 Oxygen Delivery Nj thod Room Air Room Air DS: Data Data Completed and Pending Labs on day of discharge: Labs from last 24 hours 12/27/23 12/27/23 12/26/23 06:02 05:15 13:07 WBC 3.61 L RBC 3.32 L Hgb 10.2 L Hct 31.2 L MCV 94 MCH 31 MCHC 33 RDW Coeff of Salvatore 16.8 H Plt Count 189 Neut % (Auto) 21.0 L Lymph % (Auto) 64.0 H [place] % (Auto) 14.1 H Eos % (Auto) 0.6 Baso % (Auto) 0.0 Neut # (Auto) 0.80 L Lymph # (Auto) 2.30 [place] # (Auto) 0.50 Eos # (Auto) 0.00 Baso # (Auto) 0.00 Abs Immat Gran (auto) 0.00 Imm/Tot Granulo (auto) 0.3 INR 1.23 H Sodium 138 136 Potassium 3.4 L 3.5 L Chloride 116 H 113 Carbon Dioxide 12 L 10 L Anion Gap 10 13 BUN 22 29 H Creatinine 1.9 H 2.3 H Estimated Creat Clear 43.28 35.75 Estimated GFR 36 28 Glucose 80 90 Calcium 8.6 8.2 L Total Bilirubin 0.7 0.8 Direct Bilirubin 0.7 H AST 528 H 699 H ALT 614 H 700 H Alkaline Phosphatase 71 63 Total Protein 5.8 L 5.3 L Albumin 2.7 L 2.6 L Urine Color Yellow Urine Appearance Clear Urine pH 5.5 Ur Specific [place] 1.020 Urine Protein Negative Urine Glucose (UA) Negative Urine Ketones Negative Urine Blood Negative Urine Nitrite Negative Urine Bilirubin Negative Urine Urobilinogen 0.2 Ur Leukocyte Esterase Trace A Urine RBC 0-2 Urine WBC 2-5 Ur Squamous Epith Cells Few Urine Bacteria Few A U Random Total Protein 13 12/26/23 06:16 WBC RBC Hgb Hct MCV MCH MCHC RDW Coeff of Salvatore Plt Count Neut % (Auto) Lymph % (Auto) [place] % (Auto) Eos % (Auto) Baso % (Auto) Neut # (Auto) Lymph # (Auto) [place] # (Auto) Eos # (Auto) Baso # (Auto) Abs Immat Gran (auto) Imm/Tot Granulo (auto) INR Sodium Potassium Chloride Carbon Dioxide Anion Gap BUN Creatinine Estimated Creat Clear Estimated GFR Glucose Calcium Total Bilirubin Direct Bilirubin AST ALT 795 H Alkaline Phosphatase Total Protein Albumin Urine Color Urine Appearance Urine pH Ur Specific [place] Urine Protein Urine Glucose (UA) Urine Ketones Urine Blood Urine Nitrite Urine Bilirubin Urine Urobilinogen Ur Leukocyte Esterase Urine RBC Urine WBC Ur Squamous Epith Cells Urine Bacteria U Random Total Protein Preliminary micro results at discharge 12/27/23 Unknown Urine Culture - Preliminary Urine,Clean Catch Culture in Progress 12/25/23 Unknown Urine Culture - Preliminary Urine,Clean Catch Gram negative buck Discharge Plan Discharge Disposition: Home, Self-Care Date of Admission: 12/25/23 19:54 Attending Provider on Discharge: Mala Myers Primary Care Provider: Provider,Not a Local Condition: Unchanged Anticipated Discharge Date/Time: 12/27/23 07:20 Discharge Medications: Continued etonogestrel-ethinyl estradiol [NuvaRing] 0.12-0.015 mg/24 hr ring 1 vag ring VAGINAL Q21D Discharge Orders: Discharge Order (Routine); Ordered 12/27/23 Ordered By: Mala Myers Patient Education: Acetaminophen Overdose (GEN) Additional Instructions: NO TYLENOL or Ibuprofen for the next week or so. See Lesli Gutierrez in followup to discuss your kidney function and any next steps for workup. Activity Level: Activity as Tolerated Discharge Diet: Regular Follow Up Appointments: Lesli Gutierrez [Other] - 01/02/24 2:30 pm (Follow-up and labs) Provider,Not a Local [Primary Care Provider] - (Please make an appt with Lesli Gutierrez NP at [facility] followup appointment and labs - for next week. ) Forms: [employer] Info Instructions
[2023-12-27 08:15] VITALS: BP 128/95; PULSE 64; RESP 16; TEMP 36.6; O2SAT 100
== END 2023-12-27 08:38 | disposition home or self-care (01) | DRG 812 ==
LOC: ED 18:53 → MEDSURG 12-26 15:45
PROVIDERS: Family Medicine; Admitting Provider Internal Medicine; Emergency Provider Emergency Medicine Emergency Medical Services; Visit Provider Internal Medicine
DX: T39.1X1A Poisoning by 4-Aminophenol derivatives, accidental (unintentional), initial encounter (principal); K71.8 Toxic liver disease with other disorders of liver; R74.8 Abnormal levels of other serum enzymes; N17.8 Other acute kidney failure; E86.0 Dehydration
CPT/HCPCS: 36415; 76705; 80048; 80053; 80076; 80143; 81001; 81025; 82150; 83605; 83690; 84156; 85025; 85027; 85610; 87086; 87186; 99285; J0132; J2405; J7030; J7070

== ENCOUNTER 2024-01-02 14:54 | Outpatient (CLI) | payer BC, SELFPAY | END 2024-01-02 14:55 | disposition home or self-care (01) | LOC: LKVREF 14:55 | PROVIDERS: PCP Nurse Practitioner Family; Visit Provider Nurse Practitioner Family | DX: T39.1X1A Poisoning by 4-Aminophenol derivatives, accidental (unintentional), initial encounter (principal) | CPT/HCPCS: 80053 ==

== ENCOUNTER 2024-01-29 16:18 | Outpatient (CLI) | payer BC, SELFPAY | END 2024-01-29 16:19 | disposition home or self-care (01) | LOC: NFLDREF 02-12 09:27 | PROVIDERS: PCP Nurse Practitioner Family; Visit Provider Nurse Practitioner Family | DX: R10.9 Unspecified abdominal pain (principal); D64.9 Anemia, unspecified; T39.1X1A Poisoning by 4-Aminophenol derivatives, accidental (unintentional), initial encounter | CPT/HCPCS: 80053; 85610; 85613; 85730; 86364 ==

== ENCOUNTER 2024-03-24 16:26 | Outpatient (CLI) | payer BC, SELFPAY | END 2024-03-24 16:27 | disposition home or self-care (01) | LOC: NFLDREF 03-25 06:22 | PROVIDERS: PCP Nurse Practitioner Family; Referring Provider Nurse Practitioner Family; Visit Provider Nurse Practitioner Family | DX: T39.1X1A Poisoning by 4-Aminophenol derivatives, accidental (unintentional), initial encounter (principal) | CPT/HCPCS: 80053 ==

== ENCOUNTER 2025-07-27 16:08 | Outpatient (CLI) | payer BC, SELFPAY | END 2025-07-27 16:09 | disposition home or self-care (01) | PROVIDERS: PCP Nurse Practitioner Family; Visit Provider Family Medicine | DX: D64.9 Anemia, unspecified (principal); K13.79 Other lesions of oral mucosa; K59.00 Constipation, unspecified; R21 Rash and other nonspecific skin eruption; R53.82 Chronic fatigue, unspecified; R63.4 Abnormal weight loss; Z79.3 Long term (current) use of hormonal contraceptives | CPT/HCPCS: 80053; 82306; 82607; 82728; 82784; 83540; 83550; 84443; 86038; 86200; 86231; 86258; 86364; 86431 ==

== ENCOUNTER 2025-11-06 21:48 | Emergency (ER) | payer BC, SELFPAY ==
--- OUTSIDE RECORDS SUMMARY | 2025-11-06 21:50 | XMS_ITS | Clinical Summary ---
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 1 Package ctive Social History Tobacco UseTypesPacks/DayYears UsedDateSmoking Tobacco: NeverSmokeless Tobacco: NeverAlcohol UseStandard Drinks/WeekCommentsNo0 (1 standard drink = 0.6 oz pure alcohol)CommentsUnknownSex and Gender InformationValueDate RecordedSex Assigned at BirthNot on fileLegal UxhQrivnc55/14/2013 8:28 AM CSTGender Identity Not on fileSexual OrientationNot on file Last Filed Vital Signs Vital SignReadingTime TakenCommentsBlood Eladytba303/7405 1:22 PM CDT Ivskc057304/15/2012 1:22 PM CDTTemperature--Respiratory Rate--Oxygen Saturation-- Inhaled Oxygen Concentration--Pozeic442.4 kg (230 lb 3.2 oz)04/15/2012 1:22 PM HIGOmzuba626.5 cm (5' 7.5)04/15/2012 1:22 PM CDTBody Mass Index35.5205 1:22 PM CDT Plan of Treatment Health MaintenanceDue DateLast DoneCommentsTetanus dtkxvjj0006/05/2003Depression screening for age 12+2004HIV for age 15-65006/05/2007BMI (ht and wt on same day) for age 18+2010Hepatitis C screening for age 18-7906/05/2010Hepatitis B series for 19+ (1 of 3 - 19+ 3-dose series)2011Pap test for age 21-65 2013HPV series for age 9-45 (1 - 3-dose SCDM series)2019COVID-19 vaccine series (1 - 2024- season)2025Influenza Vaccine (#1)2025 Pneumococcal series for age 6-49Aged OutNo longer eligible based on patient's age to complete this topic Insurance Care Teams Team MemberRelationshipSpecialtyStart DateEnd Date Mn, *Bariatric Spec Of PCP - General05/15/12
--- OUTSIDE RECORDS SUMMARY | 2025-11-06 21:50 | XMS_ITS | Clinical Summary ---
Author Organization [facility] Address [address] [place] [address] Care Team Providers Care Juice Weigher Name Role Phone Popfebruary Unavailable Minerva Nicolas MD Primary Care Provider Unavai lable Allergies No known active allergies Medications MedicationSigDispense QuantityRefillsLast FilledStart DateEnd DateStatus multivitamin, therapeutic with minerals (MULTI-VITAMIN) TABS tablet Take 2 tablets by mouth every morningActive VITAMIN D, CHOLECALCIFEROL, PO Take 2,000 Units by mouth dailyActive prochlorperazine (COMPAZINE) 10 MG tablet Indications:Subarachnoid hemorrhage (H)Take 1 tablet (10 mg) by mouth every 6 hours as needed for nausea 15 tablet 04/27/2018Active Additional Information Patient not taking.Informant: Self, Reported on 05/21/2018 RANITIDINE HCL PO Take 75 mg by mouth 2 times dailyActive docusate calcium (SURFAK) 240 MG capsule Take 240 mg by mouth 2 times daily as neededActive calcium carbonate (OS-LILO 500 MG [place]. [place]) 500 MG tablet Take 1 tablet by mouth 3 times dailyActive MedroxyPROGESTERone Acetate (DEPO-PROVERA IM) Inject into the muscle every 3 monthsActive oxyCODONE IR (ROXICODONE) 5 MG tablet Indications:Bariatric surgery statusTake 1-2 tablets (5-10 mg) by mouth every 4 hours as needed for moderate to severe pain 15 tablet 05/09/2018Active Additional Information Patient not taking.Reported on 05/21/2018 CYANOCOBALAMIN SL Active cyanocobalamin (VITAMIN B12) 1000 MCG/ML injection Indications:Bariatric surgery status,Postsurgical malabsorptionInject 1 mL (1,000 mcg) Subcutaneous every 30 days 3 mL Active syringe/needle, disp, 25G X 1 3 ML MISC Indications:Bariatric surgery status,Postsurgical malabsorptionUse for B-12 injection 3 each Active ranitidine (ZANTAC) 150 MG tablet Indications:Heartburn,Bariatric surgery statusTake 1 tablet (150 mg) by mouth 2 times daily 180 tablet Active omeprazole (PRILOSEC) 40 MG capsule Indications:Bariatric surgery status,Gastroesophageal reflux disease without esophagitisTake 1 capsule (40 mg) by mouth daily 30 capsule Active Active Problems ProblemNoted DateDiagnosed DateVitamin B12 deficiency due to intestinal nykhzmpbvwfvw52/27/2018Abdominal pain05/06/2018TBI (traumatic brain injury) 04/27/2018Left ear hearing loss04/27/2018Subdural koypwojb56/03/2018Subarachnoid wwjcgwnzqe09/01/2018Alcoholic intoxication with yscykljwlmej45/01/2018 Gnevstsqqyz04/01/2018Subdural rpkqiljfuy52/01/6518Dusenkpkajo55/22/2017Bariatric surgery milazr7606/18/2017Postsurgical dypkpghczwdse40/25/2017Irregular menses 07/13/2016Uses tiarlqy2007/13/2016 Resolved Problems ProblemNoted DateDiagnosed DateResolved DateMorbid obesity with BMI of 40.0- 44.9, adultBMI 40.0-44.9, adult Social History Tobacco UseTypesPacks/DayYears UsedDateSmoking Tobacco: NeverSmokeless Tobacco: NeverAlcohol UseStandard Drinks/WeekCommentsYes0 (1 standard drink = 0.6 oz pure alcohol)ONCE OR TWICE A MONTHAdolescent EducationAnswerDate RecordedGetting School Help NeededNot on file3CommentsNoSex and Gender InformationValueDate RecordedSex Assigned at BirthNot on fileLegal SexFemale 10/07/2015 8:56 AM CSTGender IdentityNot on fileSexual OrientationNot on file Last Filed Vital Signs Vital SignReadingTime TakenCommentsBlood Ympexvfo769/7106 8:53 AM CDT Nhjri6349 8:53 AM HUZWwezvuybvvn36.8 ??C (98.2 ??F)05/09/2018 11:28 AM CDTRespiratory Umwo288605/21/2018 8:53 AM CDTOxygen Lxklrdbsop43%05/21/2018 8:53 AM CDTInhaled Oxygen Concentration--Epddlp71.4 kg (164 lb 1.6 oz)05/21/2018 9:40 AM SBRHcovle822.7 cm (5' 8)05/21/2018 9:40 AM CDTBody Mass Index24.95005/21/2018 9:40 AM CDT Plan of Treatment Not on file Medical Devices ImplantedTypeAreaManufacturerDevice IdentifierShelf Expiration DateModel / Serial / LotStent Ureteral Dbl Pigtail Inlay [id number] Implanted:Qty: 1 on 01/27/2016 by [facility], Non-VascularLeft: UreterCR [employer]-[id number]/2020 [id number] / / [id number] Insurance Advance Directives For more information, please contact: [phone] * Full Code (Latest Code Status on File) Date ActivatedDate InactivatedComments05/06/2018 2:01 AM05/09/2018 4:50 PM * Full Code Date ActivatedDate InactivatedComments04/27/2018 9:30 AM05/06/2018 2:01 AM * Full Code Date ActivatedDate InactivatedComments04/25/2018 6:56 AM04/27/2018 9:30 AM * Full Code Date ActivatedDate InactivatedComments06/12/2017 1:38 PM06/15/2017 3:56 PM * Full Code Date ActivatedDate InactivatedComments01/27/2016 8:30 AM06/12/2017 1:38 PM Care Teams Team MemberRelationshipSpecialtyStart DateEnd Date Minerva Nicolas MD [facility] - [facility]05/21/18February Physician Ourmsgtop09/13/15
--- OUTSIDE RECORDS SUMMARY | 2025-11-06 21:50 | XMS_ITS | Patient Health Record ---
Author Organization [facility] Address [address] [facility] [address] [place] [address] Care Team Providers Care Chamber Walker Name Role Phone CHEL GRACE, MICHAEL Unavailable [phone] Reason For Referral No Information Social History Social History PSA Social HistorySocial InfoQuestionAnswerNotesSMOKING STATUS 13Y AND OLDERAre you a:Non-SmokerEducation:Is the Child in School?Yes? What Grade?7thAdditional DetailsCategorySocial InfoOptionsDetailsPSA Social HistoryChild Lives At:Home Child Lives With:Mother,OtherDay DuhzWiEoktwwmc4Lzqogoq/Drugs?NoActivities / Interests?baseball, running, biking, video games, reading, youth group, outdoors Others Residing In Home:All Members: Mom, Step Dad, Brother, Sister, Step Sister EmploymentNoRecent Travelno Plan Of Treatment No Information
[2025-11-06 21:59] VITALS: BP 118/60; PULSE 70; RESP 18; TEMP 36.7; O2SAT 100; BMI 21.3
--- NOTE | 2025-11-06 22:22 | CRLHL7_ITS ---
For Patients: As a result of the Century Cures Act, medical imaging exams and procedure reports are released immediately into your electronic medical record. You may view this report before your referring provider. If you have questions, please contact your health care provider. INDICATION: Left upper quadrant pain. TECHNIQUE: CT abdomen and pelvis acquired with 95 cc Isovue 370 IV contrast. COMPARISON: January 02, 2022. FINDINGS: Lower chest: Unremarkable. Liver: Unremarkable. Normal in size and attenuation. No suspicious masses. Gallbladder and bile ducts: Unremarkable. No stones or inflammation. No biliary dilatation. Pancreas: Unremarkable. No mass or inflammation. Spleen: Unremarkable. Normal in size. No masses. Adrenal glands: Unremarkable. No nodules. Kidneys: Unremarkable. No suspicious masses, stones, or hydronephrosis. GI tract: Gastric bypass. Mild proximal colonic wall thickening accentuated by nondistention. Normal in caliber. No sign of mass or inflammation. Normal appendix. Vasculature: Abdominal aorta is normal in caliber. Mesenteric arteries are patent. Lymph nodes: No lymphadenopathy. Peritoneum/Abdominal Wall: Unremarkable. No sign of mass or infiltration. No free air or significant free fluid. Pelvis: Moderate volume free fluid in the pelvis and perisplenic region. Bones: Unremarkable for age. IMPRESSION: Moderate volume free fluid in the pelvis and perisplenic region. Postsurgical changes of gastric bypass. Otherwise, no acute intra-abdominal/pelvic abnormality, including free intraperitoneal air or drainable fluid collections. Mild proximal colonic wall thickening accentuated by nondistention. Recommend correlation for history of diarrheal illness. Please note that all CT scans at this facility use dose modulation, iterative reconstruction, and/or weight-based dosing when appropriate to reduce radiation dose to as low as reasonably achievable. Dictated by Sarkis Lira MD @ 11/06/2025 11:41:35 PM (Electronically Signed)
--- NOTE | 2025-11-06 22:22 | CRLHL7_ITS ---
For Patients: As a result of the Century Cures Act, medical imaging exams and procedure reports are released immediately into your electronic medical record. You may view this report before your referring provider. If you have questions, please contact your health care provider. INDICATION: Shortness of breath, left chest pain. TECHNIQUE: CT chest PE was acquired with 95 cc Isovue 370 IV contrast. MIP reconstructions were performed. COMPARISON: None. FINDINGS: Heart and vasculature: Contrast opacification of the pulmonary arterial tree is adequate. No sign of pulmonary embolism. Heart size is normal. Thoracic aorta and pulmonary artery are normal in caliber. Lungs and pleura: No suspicious nodules or infiltrates. No pleural effusions, pleural thickening, or pneumothorax. Lymph nodes/mediastinum: No mediastinal, hilar, or axillary adenopathy. Chest wall: No masses. Upper abdomen: No acute or significant findings. Bones: Unremarkable for age. IMPRESSION: No pulmonary embolism. No focal consolidations. Please note that all CT scans at this facility use dose modulation, iterative reconstruction, and/or weight-based dosing when appropriate to reduce radiation dose to as low as reasonably achievable. Dictated by Sarkis Lira MD @ 11/06/2025 11:35:42 PM (Electronically Signed)
[2025-11-06 22:30] LABS: Hematocrit* 29.5 % (33.0-51.0); Hemoglobin* 9.2 gm/dL (12.0-16.0); Immature Granulocytes Pct Auto 0.2 %; Lactate* 1.3 mmol/L (0.5-1.9); Mean Corpuscular HGB Conc 31 gm/dL (32-36); Mean Corpuscular Hemoglobin 24 pg (26-34); Mean Corpuscular Volume 78 fL (80-100); RDW Coefficient of Variation % 16.4 % (11.5-15.5); Red Blood Count* 3.80 m/uL (4.00-5.20); White Blood Count* 13.14 K/uL (4.50-11.00)
[2025-11-06 22:32] LABS: Immature Granulocytes Abs Auto 0.00 K/uL (0.00-0.30); Lymphocytes Absolute Auto 1.10 K/uL (0.90-2.90); Slide Review Reflex No
--- NOTE | 2025-11-06 22:41 | ED_ITS ---
HPI - General Adult General Date Seen: 11/06/25 <Bogdan Proctro MD - Last Filed: 11/08/25 14:17> Chief complaint: Nausea/Vomiting <Bogdan Proctor MD - Last Filed: 11/08/25 14:17> Stated complaint: vomiting brown blood <Bogdan Proctor MD - Last Filed: 11/08/25 14:17> Time Seen by Provider: 11/06/25 22:20 <Bogdan Proctor MD - Last Filed: 11/08/25 14:17> Source: patient, RN notes reviewed and old records reviewed <Bogdan Proctor MD - Last Filed: 11/08/25 14:17> Mode of arrival: ambulatory <Bogdan Proctor MD - Last Filed: 11/08/25 14:17> Limitations: no limitations <Bogdan Procotr MD - Last Filed: 11/08/25 14:17> History of Present Illness HPI narrative: Patient is a 35-year-old female who presents here with throwing up coffee-ground emesis, this cause has happened twice today, at 4:00 p.m. in approximately 730. Unknown amount, but she thinks it probably was blood, she has a history of an ulcer before. And a previous operation secondary to a perforation, she underwent gastric bypass in 2014 at [facility], approximately 2 years later she ended up with a perforation, had undergo emergency surgery. She has been losing weight, she does not feel dizzy, she denies any significant use of alcohol drugs, ibuprofen or NSAIDs. She has had a little bit of problem with constipation but denies any blood or black stools. She did try some Mylanta today, along with omeprazole. <Bogdan Proctor MD - Last Filed: 11/08/25 14:17> Onset (ago): hour(s) <Bogdan Proctor MD - Last Filed: 11/08/25 14:17> Associated symptoms: denies other symptoms <Bogdan Proctor MD - Last Filed: 11/08/25 14:17> Related Data Home medications: Home Medications ?Medication ?Instructions ?Recorded ?Confirmed etonogestrel 0.12 mg-ethinyl 1 vag ring vaginal Q21D 0 12/26/23 08/26/25 estradiol 0.015 mg/24 hr vaginal ring (NuvaRing) Previous Rx's ?Medication ?Instructions ?Recorded iron,carbonyl 65 mg-vitamin C 125 1 tab PO BID #180 ta bs 07/29/25 mg tablet,delayed release (Vitron-C) cholecalciferol (vitamin D3) 25 25 mcg PO QDAY #90 tab s 08/26/25 mcg (1,000 unit) tablet cyanocobalamin (vitamin B-12) 2,000 mcg (2 x 1,000 mcg ) PO QDAY 08/26/25 1,000 mcg tablet (Vitamin B-12) #180 tabs omeprazole 40 mg capsule,delayed 40 mg PO DAILY #30 ca ps 11/07/25 release sucralfate 1 gram tablet (Carafate) 1 g PO TID #90 tab s 11/07/25 <Bogdan Proctor MD - Last Filed: 11/08/25 14:17> Allergies/adverse reactions: Allergies Allergy/AdvReac Type Severity Reaction Status Date / Time No Known Drug Allergies Allergy Verified 08/26/25 15:31 <Bogdan Proctor MD - Last Filed: 11/08/25 14:17> Review of Systems Status of ROS: Reports: 10 or more systems reviewed and unremarkable except as noted in History and below <Bogdan Proctor MD - Last Filed: 11/08/25 14:17> [facility] Medical History: Medical History Calculus of kidney ?N20.0 - Calculus of kidney (ICD-10) Gastritis ?K29.70 - Gastritis, unspecified, without bleeding (ICD-10) Nausea and vomiting ?R11.2 - Nausea with vomiting, unspecified (ICD-10) Mouth sores ?K13.79 - Other lesions of oral mucosa (ICD-10) Hx of traumatic brain injury (2018) ?Z87.820 - Personal history of traumatic brain injury (ICD-10) Iron deficiency anemia (07/2025) ?D50.9 - Iron deficiency anemia, unspecified (ICD-10) Vitamin B 12 deficiency (07/2025) ?E53.8 - Deficiency of other specified B group vitamins (ICD-10) Morbid obesity with body mass index (BMI) of 45.0 to 49.9 in adult ?E66.01 - Morbid (severe) obesity due to excess calories (ICD-10) ?Z68.42 - Body mass index [BMI] 45.0-49.9, adult (ICD-10) Perforation of intestine (2018) ?K63.1 - Perforation of intestine (nontraumatic) (ICD-10) Tylenol overdose ?T39.1X1A - Poisoning by 4-Aminophenol derivatives, accidental (unintentional), initial encounter (ICD-10) Exercise induced bronchospasm (09/29/08) ?J45.990 - Exercise induced bronchospasm (ICD-10) Ankle fracture (09/07/11) ?S82.899A - Other fracture of unspecified lower leg, initial encounter for closed fracture (ICD-10) History of obesity ?Z86.39 - Personal history of other endocrine, nutritional and metabolic disease (ICD-10) <Bogdan Proctor MD - Last Filed: 11/08/25 14:17> Surgical History: Surgical History History of laparotomy (2017) ?Z98.890 - Other specified postprocedural states (ICD-10) Status post surgical manipulation of ankle joint (2009) ?Z98.890 - Other specified postprocedural states (ICD-10) Status post cystoscopy (2015) ?Z98.890 - Other specified postprocedural states (ICD-10) Status following gastric bypass for weight loss (2016) ?Z98.84 - Bariatric surgery status (ICD-10) <Bogdan Proctor MD - Last Filed: 11/08/25 14:17> Family History: Family History Mother Ulcerative colitis Paternal Grandmother Systemic lupus erythematosus Maternal Grandmother Uterine cancer, Onset Age: 72 Heart disease, Onset Age: 55 Paternal Grandfather Prostate cancer Family/Other Breast cancer <Bogdan Proctor MD - Last Filed: 11/08/25 14:17> Social History: Social History Narrative: 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 Lifetime nonsmoker Rare alcohol use No drug use No exercise What is your current living situation?: I presently have a place to live Problems where you live: no known problems Problems where you live details: none In the past 12 months, utilities in danger of being shut off: no In past 12 months, lack of transportation kept you from medical appts, meetings, work, or getting things needed for daily living: no In the past 12 mos, have been you worried that your food would run out before you had money to buy more?: never true In the past 12 mos, the food you bought just didn't last and you didn't have money to buy more?: never true Smoking Status: Never smoker How often do you have a drink containing alcohol: 2-4 times a month Alcohol type: beer and wine How many standard drinks containing alcohol do you have on a typical day: 1 or 2 How often do you have six or more drinks on one occasion: Never AUDIT-C Alcohol total score: 2 Non-prescribed substance use: denies use Caffeine: Yes (soda, tea) How often does anyone, including family, friends and others, physically hurt you : never How often does anyone, including family, friends and others, insult or talk down to you: never How often does anyone, including family, friends and others, threaten you with harm: never How often does anyone, including family, friends and others, scream or curse at you: never service: No <Bogdan Proctor MD - Last Filed: 11/08/25 14:17> Exam Narrative: Exam Narrative: On examination in room 3 she is pale, speaking to me normally nontoxic. Pupils are equal round reactive to light there is no scleral icterus redness or TMs are normal her oropharynx is normal her neck is supple, her chest is good air entry bilaterally with no wheezing crackles noted her heart sounds are normal her abdomen she shows me where it hurts it is in the left upper quadrant actually tucked under her ribs. Her abdomen otherwise is non peritoneal no masses, quiet, real bowel sounds noted. Skin reveals no petechiae rashes, she moves all extremities independently and well. <Bogdan Proctor MD - Last Filed: 11/08/25 14:17> Const: Vital Signs, click to edit/add: Vital Signs - 24 hr 11/06/25 21:59 Temperature 98.0 F Pulse Rate [Right Pulse Oximeter] 70 Respiratory Rate 18 Blood Pressure [Ri ght Upper Arm] 118/60 Pulse Oximetry 100 Oxygen Delivery Me thod Room Air <Bogdan Proctor MD - Last Filed: 11/08/25 14:17> Vital Signs, click to edit/add: Vital Signs - 24 hr 11/06/25 21:59 Temperature 98.0 F Pulse Rate [Right Pulse Oximeter] 70 Respiratory Rate 18 Blood Pressure [Ri ght Upper Arm] 118/60 Pulse Oximetry 100 Oxygen Delivery Me thod Room Air <Anna Marie Katz MD - Last Filed: 11/07/25 03:22> Documenting provider has reviewed patient's vital signs: yes <Bogdan Proctor MD - Last Filed: 11/08/25 14:17> Course Reevaluation(s) Time of Reevaluation #1: 00:17 <Bogdan Proctor MD - Last Filed: 11/08/25 14:17> Reevaluation #1: Discussed with the patient, along with the radiologist previously. She does have some free fluid around her spleen in her pelvis, although this is not blood. She has no history of recent lower abdominal pain that would suggest this is ovarian in nature. There is no air within the free fluid to suggest that this is a perforation. Her hemoglobins it least initially were normal. At 9.2 her previous when July was 9.8. I think it would be reasonable and approximately an hour hour and a half to recheck her hemoglobin if this remains stable, in along with her pain. I think then outpatient follow-up, with any EGD, and placing the patient on omeprazole proton pump inhibitor and care of fat would be reasonable. She does have a primary care physician within the [facility] systems, and I would endeavor have her follow-up with them. To scheduled EGD. If she becomes unstable, or increasing pain then transfer to a tertiary center, that has ability to do EGD over the course of the weekend. This is explained to the patient and she is in agreement, she will be signed over to my partner pending hemoglobin results. <Bogdan Proctor MD - Last Filed: 11/08/25 14:17> Time of Reevaluation #2: 01:50 <Anna Marie Katz MD - Last Filed: 11/07/25 03:22> Reevaluation #2: On re-evaluation patient does continue to report improvement of symptoms and states that pain has improved however is worse with movement. Patient appears pale but remains hemodynamically stable. Repeat hemoglobin 8.2 which is down trending from 9.2 ~ 3 hours ago. Given patient's clinical presentation, CT findings, decreased hemoglobin, and ongoing pain I discussed results with patient and mother and would recommend transfer. I discussed patient management with [facility] Dr. Schmidt who kindly accepted patient in transfer for further evaluation, further testing, ongoing care. Patient understands and agrees with transfer. <Anna Marie Katz MD - Last Filed: 11/07/25 03:22> Vital Signs Vital signs: Initial Vital Signs Temperature 98.0 F 11/06/25 21:59 Temperature Source Temporal Artery Scan 11/06/25 21:59 Pulse Rate 70 11/06/25 21:59 Respiratory Rate 18 11/06/25 21:59 Blood Pressure 118/60 11/06/25 21:59 Blood Pressure Mean 79 11/06/25 21:59 Blood Pressure Position Sitting 11/06/25 21:59 Pulse Oximetry 100 11/06/25 21:59 Oxygen Delivery Method Room Air 11/06/25 21:59 Vital Signs Temperature 98.0 F 11/06/25 21:59 Pulse Rate 70 11/06/25 21:59 Respiratory Rate 18 11/06/25 21:59 Blood Pressure 118/60 11/06/25 21:59 Pulse Oximetry 100 11/06/25 21:59 Oxygen Delivery Method Room Air 11/06/25 21:59 Temperature 98.0 F 11/06/25 21:59 Pulse Rate 70 11/06/25 21:59 Respiratory Rate 18 11/06/25 21:59 Blood Pressure 118/60 11/06/25 21:59 Pulse Oximetry 100 11/06/25 21:59 Oxygen Delivery Method Room Air 11/06/25 21:59 <Bogdan Proctor MD - Last Filed: 11/08/25 14:17> Initial Vital Signs Temperature 98.0 F 11/06/25 21:59 Temperature Source Temporal Artery Scan 11/06/25 21:59 Pulse Rate 70 11/06/25 21:59 Respiratory Rate 18 11/06/25 21:59 Blood Pressure 118/60 11/06/25 21:59 Blood Pressure Mean 79 11/06/25 21:59 Blood Pressure Position Sitting 11/06/25 21:59 Pulse Oximetry 100 11/06/25 21:59 Oxygen Delivery Method Room Air 11/06/25 21:59 Vital Signs Temperature 98.0 F 11/06/25 21:59 Pulse Rate 70 11/06/25 21:59 Respiratory Rate 18 11/06/25 21:59 Blood Pressure 118/60 11/06/25 21:59 Pulse Oximetry 100 11/06/25 21:59 Oxygen Delivery Method Room Air 11/06/25 21:59 Temperature 98.0 F 11/06/25 21:59 Pulse Rate 70 11/06/25 21:59 Respiratory Rate 18 11/06/25 21:59 Blood Pressure 118/60 11/06/25 21:59 Pulse Oximetry 100 11/06/25 21:59 Oxygen Delivery Method Room Air 11/06/25 21:59 <Anna Marie Katz MD - Last Filed: 11/07/25 03:22> Medications Administered Medications: Discontinued Medications Generic Name Dose Route Start Last Admin Trade Name Freq PRN Reason Stop Dose Admin Hydromorphone HCl 0.5 mg 11/06/25 22:21 11/06/25 22:45 Hydromorphone 0.5 Mg/0.5 Ml Inj IVP 11/06/25 22:22 0.5 mg ONCE ONE Administration Sodium Chloride 1,000 mls @ 1,000 mls/hr 11/06/25 22:30 11/07/25 00:04 0.9 % Sodium Chloride 1000 Ml IV 11/06/25 23:29 Infused .Q1H MARIA Infusion Ondansetron HCl 4 mg 11/06/25 22:21 11/06/25 22:43 Ondansetron 2 Mg/Ml Inj IVP 11/06/25 22:22 4 mg ONCE ONE Administration Pantoprazole Sodium 40 mg 11/06/25 23:39 11/07/25 00:04 Pantoprazole Sodium 40 Mg Inj IVP 11/06/25 23:40 40 mg ONCE ONE Administration <Bogdan Proctor MD - Last Filed: 11/08/25 14:17> Discontinued Medications Generic Name Dose Route Start Last Admin Trade Name Freq PRN Reason Stop Dose Admin Hydromorphone HCl 0.5 mg 11/06/25 22:21 11/06/25 22:45 Hydromorphone 0.5 Mg/0.5 Ml Inj IVP 11/06/25 22:22 0.5 mg ONCE ONE Administration Sodium Chloride 1,000 mls @ 1,000 mls/hr 11/06/25 22:30 11/07/25 00:04 0.9 % Sodium Chloride 1000 Ml IV 11/06/25 23:29 Infused .Q1H MARIA Infusion Ondansetron HCl 4 mg 11/06/25 22:21 11/06/25 22:43 Ondansetron 2 Mg/Ml Inj IVP 11/06/25 22:22 4 mg ONCE ONE Administration Pantoprazole Sodium 40 mg 11/06/25 23:39 11/07/25 00:04 Pantoprazole Sodium 40 Mg Inj IVP 11/06/25 23:40 40 mg ONCE ONE Administration <Anna Marie Katz MD - Last Filed: 11/07/25 03:22> Medical Decision Making MDM Narrative Medical decision making narrative: During the evaluation of this patient I considered multiple differential diagnosis including life-threatening differentials which are appendicitis, aortic aneurysm, mesenteric ischemia, bowel perforation, ectopic , volvulus and bowel obstruction, other differential diagnosis include but are not limited to inflammatory bowel disease, cholecystitis, pancreatitis, hepatitis, gastritis, GERD, diverticulitis, peptic ulcer disease, pyelonephritis/UTI, renal colic/stone, pelvic inflammatory disease, cervicitis, endometritis, intrauterine , dysfunctional uterine bleeding, ovarian cyst/torsion, spontaneous as well as other etiologies <Bogdan Proctor MD - Last Filed: 11/08/25 14:17> Medical Records Medical records reviewed: Yes I reviewed the patient's medical records <Bogdan Proctor MD - Last Filed: 11/08/25 14:17> Lab Data Lab results reviewed: Yes I reviewed the patient's lab results <Bogdan Proctor MD - Last Filed: 11/08/25 14:17> Labs: Lab Results 11/06/25 11/06/25 11/07/25 Range/Units 22:10 23:48 00:45 WBC 13.14 H 12.49 H (4.50-11.00) K/uL RBC 3.80 L 3.46 L (4.00-5.20) m/uL Hgb 9.2 L 8.2 L (12.0-16.0) gm/dL Hct 29.5 L 26.8 L (33.0-51.0) % MCV 78 L 78 L (80-100) fL MCH 24 L 24 L (26-34) pg MCHC 31 L 31 L (32-36) gm/dL RDW Coeff of Salvatore 16.4 H 16.3 H (11.5-15.5) % Plt Count 266 199 (140-440) K/uL Neut % (Auto) 86.7 H 87.8 H (42.0-72.0) % Lymph % (Auto) 8.3 L 5.5 L (20-44) % Refugio % (Auto) 4.4 5.5 (0.0-11.0) % Eos % (Auto) 0.2 0.0 (0.0-7.0) % Baso % (Auto) 0.2 0.1 (0.0-3.0) % Neut # (Auto) 11.40 H 11.00 H (1.7-7.0) K/uL Lymph # (Auto) 1.10 0.70 L (0.90-2.90) K/uL Refugio # (Auto) 0.60 0.70 (0.00-0.90) K/UL Eos # (Auto) 0.00 0.00 (0.00-0.50) K/uL Baso # (Auto) 0.00 0.00 (0.00-0.30) K/uL Abs Immat Gran (auto) 0.00 0.10 (0.00-0.30) K/uL Imm/Tot Granulo (auto) 0.2 1.1 % D-Dimer Quant (PE/DVT) 0.85 H (0.00-0.50) ug/ml Sodium 133 L (135-149) mmol/L Potassium 3.2 L (3.6-5.1) mmol/L Chloride 104 (96-114) mmol/L Carbon Dioxide 20 (20-32) mmol/L Anion Gap 9 (7-15) mEq/L BUN 10 (5-24) mg/dL Creatinine 0.5 (0.5-1.5) mg/dL Estimated Creat Clear 160.43 Estimated GFR 127 ml/min Glucose 154 H (60-115) mg/dL Lactate 1.3 (0.5-1.9) mmol/L Calcium 8.9 (8.4-10.6) mg/dL Magnesium 1.8 (1.5-2.6) mg/dL Total Bilirubin 0.4 (0.1-1.5) mg/dL Direct Bilirubin 0.2 (0.0-0.5) mg/dL AST 19 (12-35) U/L ALT 12 (4-35) U/L Alkaline Phosphatase 59 (40-150) U/L Troponin I < 0.01 (0.01-0.04) ng/mL Total Protein 7.2 (6.0-8.3) g/dL Albumin 4.1 (3.3-5.0) g/dL Amylase 111 H (18-89) U/L Lipase 57 (23-300) U/L HCG, Qual Negative (Negative) Stool Occult Blood Negative (Negative) Ethyl Alcohol < 0.01 (0.01-0.03) % <Bogdan Proctor MD - Last Filed: 11/08/25 14:17> Lab Results 11/06/25 11/06/25 11/07/25 Range/Units 22:10 23:48 00:45 WBC 13.14 H 12.49 H (4.50-11.00) K/uL RBC 3.80 L 3.46 L (4.00-5.20) m/uL Hgb 9.2 L 8.2 L (12.0-16.0) gm/dL Hct 29.5 L 26.8 L (33.0-51.0) % MCV 78 L 78 L (80-100) fL MCH 24 L 24 L (26-34) pg MCHC 31 L 31 L (32-36) gm/dL RDW Coeff of Salvatore 16.4 H 16.3 H (11.5-15.5) % Plt Count 266 199 (140-440) K/uL Neut % (Auto) 86.7 H 87.8 H (42.0-72.0) % Lymph % (Auto) 8.3 L 5.5 L (20-44) % Refugio % (Auto) 4.4 5.5 (0.0-11.0) % Eos % (Auto) 0.2 0.0 (0.0-7.0) % Baso % (Auto) 0.2 0.1 (0.0-3.0) % Neut # (Auto) 11.40 H 11.00 H (1.7-7.0) K/uL Lymph # (Auto) 1.10 0.70 L (0.90-2.90) K/uL Refug[place] # (Auto) 0.60 0.70 (0.00-0.90) K/UL Eos # (Auto) 0.00 0.00 (0.00-0.50) K/uL Baso # (Auto) 0.00 0.00 (0.00-0.30) K/uL Abs Immat Gran (auto) 0.00 0.10 (0.00-0.30) K/uL Imm/Tot Granulo (auto) 0.2 1.1 % D-Dimer Quant (PE/DVT) 0.85 H (0.00-0.50) ug/ml Sodium 133 L (135-149) mmol/L Potassium 3.2 L (3.6-5.1) mmol/L Chloride 104 (96-114) mmol/L Carbon Dioxide 20 (20-32) mmol/L Anion Gap 9 (7-15) mEq/L BUN 10 (5-24) mg/dL Creatinine 0.5 (0.5-1.5) mg/dL Estimated Creat Clear 160.43 Estimated GFR 127 ml/min Glucose 154 H (60-115) mg/dL Lactate 1.3 (0.5-1.9) mmol/L Calcium 8.9 (8.4-10.6) mg/dL Magnesium 1.8 (1.5-2.6) mg/dL Total Bilirubin 0.4 (0.1-1.5) mg/dL Direct Bilirubin 0.2 (0.0-0.5) mg/dL AST 19 (12-35) U/L ALT 12 (4-35) U/L Alkaline Phosphatase 59 (40-150) U/L Troponin I < 0.01 (0.01-0.04) ng/mL Total Protein 7.2 (6.0-8.3) g/dL Albumin 4.1 (3.3-5.0) g/dL Amylase 111 H (18-89) U/L Lipase 57 (23-300) U/L HCG, Qual Negative (Negative) Stool Occult Blood Negative (Negative) Ethyl Alcohol < 0.01 (0.01-0.03) % <Anna Marie Katz MD - Last Filed: 11/07/25 03:22> Imaging Data CT scan - abdomen: Radiologist's impression: [address] [address] Diagnostic Imaging Report Patient: Arlin Null MR#: [id number] : 1990 Acct:[id number] Loc: ED Service Date: 11/06/[address]: Ordering Physician: Bogdan Proctor M.D. Date of Service: 11/06/25 Procedure(s): CT angio chest PE protocol Accession Number(s): [id number] cc: Lori Black M.D.; Bogdan Proctor M.D.~ For Patients: As a result of the Cures Act, medical imaging exams and procedure reports are released immediately into your electronic medical record. You may view this report before your referring provider. If you have questions, please contact your health care provider. INDICATION: Shortness of breath, left chest pain. TECHNIQUE: CT chest PE was acquired with 95 cc Isovue 370 IV contrast. MIP reconstructions were performed. COMPARISON: None. FINDINGS: Heart and vasculature: Contrast opacification of the pulmonary arterial tree is adequate. No sign of pulmonary embolism. Heart size is normal. Thoracic aorta and pulmonary artery are normal in caliber. Lungs and pleura: No suspicious nodules or infiltrates. No pleural effusions, pleural thickening, or pneumothorax. Lymph nodes/mediastinum: No mediastinal, hilar, or axillary adenopathy. Chest wall: No masses. Upper abdomen: No acute or significant findings. Bones: Unremarkable for age. IMPRESSION: No pulmonary embolism. No focal consolidations. Please note that all CT scans at this facility use dose modulation, iterative reconstruction, and/or weight-based dosing when appropriate to reduce radiation dose to as low as reasonably achievable. Dictated by Sarkis Lira MD @ 11/06/2025 11:35:[address] [address] Diagnostic Imaging Report Patient: Arlin Null MR#: [id number] : 1990 Acct:[id number] Loc: ED Service Date: 11/06/[address]: Ordering Physician: Bogdan Proctor M.D. Date of Service: 11/06/25 Procedure(s): CT abdomen pelvis w con Accession Number(s): [id number] cc: Lori Black M.D.; Bogdan Proctor M.D.~ For Patients: As a result of the Cures Act, medical imaging exams and procedure reports are released immediately into your electronic medical record. You may view this report before your referring provider. If you have questions, please contact your health care provider. INDICATION: Left upper quadrant pain. TECHNIQUE: CT abdomen and pelvis acquired with 95 cc Isovue 370 IV contrast. COMPARISON: January 02, 2022. FINDINGS: Lower chest: Unremarkable. Liver: Unremarkable. Normal in size and attenuation. No suspicious masses. Gallbladder and bile ducts: Unremarkable. No stones or inflammation. No biliary dilatation. Pancreas: Unremarkable. No mass or inflammation. Spleen: Unremarkable. Normal in size. No masses. Adrenal glands: Unremarkable. No nodules. Kidneys: Unremarkable. No suspicious masses, stones, or hydronephrosis. GI tract: Gastric bypass. Mild proximal colonic wall thickening accentuated by nondistention. Normal in caliber. No sign of mass or inflammation. Normal appendix. Vasculature: Abdominal aorta is normal in caliber. Mesenteric arteries are patent. Lymph nodes: No lymphadenopathy. Peritoneum/Abdominal Wall: Unremarkable. No sign of mass or infiltration. No free air or significant free fluid. Pelvis: Moderate volume free fluid in the pelvis and perisplenic region. Bones: Unremarkable for age. IMPRESSION: Moderate volume free fluid in the pelvis and perisplenic region. Postsurgical changes of gastric bypass. Otherwise, no acute intra-abdominal/pelvic abnormality, including free intraperitoneal air or drainable fluid collections. Mild proximal colonic wall thickening accentuated by nondistention. Recommend correlation for history of diarrheal illness. Please note that all CT scans at this facility use dose modulation, iterative reconstruction, and/or weight-based dosing when appropriate to reduce radiation dose to as low as reasonably achievable. Dictated by Sarkis Lira MD @ 11/06/2025 11:41:35 PM (Electronically Signed)(Electronically Signed) <Bogdan Proctor MD - Last Filed: 11/08/25 14:17> ECG Data Attestation: I personally reviewed and interpreted this ECG as follows: <Bogdan Proctor MD - Last Filed: 11/08/25 14:17> Prior ECG tracings: not available for review <Bogdan Proctor MD - Last Filed: 11/08/25 14:17> Interpretation: EKG shows normal sinus rhythm, with a bit of a rightward axis, incomplete right bundle-branch block morphology, no acute ST wave changes ventricular rate 73, QT 414 QTC 456. <Bogdan Proctor MD - Last Filed: 11/08/25 14:17> Discharge Plan Discharge Clinical Impression: Acute upper gastrointestinal bleeding, Abdominal pain <Bogdan Proctor MD - Last Filed: 11/08/25 14:17> Patient Disposition: Xfer Other <Bogdan Proctor MD - Last Filed: 11/08/25 14:17> Discharge Location: [facility] <Bogdan Proctor MD - Last Filed: 11/08/25 14:17> Condition: Improved <Bogdan Proctor MD - Last Filed: 11/08/25 14:17> Instructions: GERD (Gastroesophageal Reflux Disease) (DC), Abdominal Pain (ED), Upper Endoscopy (DC) <Bogdan Proctor MD - Last Filed: 11/08/25 14:17> Activity Level: No Restrictions <Bogdan Proctor MD - Last Filed: 11/08/25 14:17> No Restrictions <Anna Marie Katz MD - Last Filed: 11/07/25 03:22> Discharge Diet: Regular <Bogdan Proctor MD - Last Filed: 11/08/25 14:17> Regular <Anna Marie Katz MD - Last Filed: 11/07/25 03:22> Prescriptions: New sucralfate [Carafate] 1 gram tablet 1 g PO TID Qty: 90 2RF omeprazole 40 mg capsule,delayed release(DR/EC) 40 mg PO DAILY Qty: 30 2RF No Action cholecalciferol (vitamin D3) 25 mcg (1,000 unit) tablet 25 mcg PO QDAY Qty: 90 4RF cyanocobalamin (vitamin B-12) [Vitamin B-12] 1,000 mcg tablet 2,000 mcg PO QDAY Qty: 180 4RF etonogestrel-ethinyl estradiol [NuvaRing] 0.12-0.015 mg/24 hr ring 1 vag ring VAGINAL Q21D Vitron-C 65 mg iron- 125 mg tablet,delayed release (DR/EC) 1 tab PO BID Qty: 180 3RF <Bogdan Proctor MD - Last Filed: 11/08/25 14:17> Stand Alone Forms: MyHealth Info Instructions <Bogdan Proctor MD - Last Filed: 11/08/25 14:17>
[2025-11-06] MEDS: ONDANSETRON 2 MG/ML inj 4 MG IVP (22:43)
[2025-11-06 22:44] LABS: Albumin* 4.1 g/dL (3.3-5.0)
[2025-11-06 22:45] LABS: Chloride* 104 mmol/L (96-114); Potassium* 3.2 mmol/L (3.6-5.1); Sodium* 133 mmol/L (135-149)
[2025-11-06 22:47] LABS: Anion Gap 9 mEq/L (7-15); Blood Urea Nitrogen* 10 mg/dL (5-24); Carbon Dioxide* 20 mmol/L (20-32); Creatinine* 0.5 mg/dL (0.5-1.5); Est. Creatinine Clearance* 160.43; Estimated Glomerular Filt Rate 127 ml/min; Total Protein* 7.2 g/dL (6.0-8.3)
[2025-11-06 22:48] LABS: Alanine Aminotransferase* 12 U/L (4-35); Alkaline Phosphatase* 59 U/L (40-150); Aspartate Amino Transferase* 19 U/L (12-35); Bilirubin Direct* 0.2 mg/dL (0.0-0.5); Bilirubin Total* 0.4 mg/dL (0.1-1.5); Calcium* 8.9 mg/dL (8.4-10.6); Glucose* 154 mg/dL (60-115)
[2025-11-06 22:49] LABS: D Dimer Quantitative* 0.85 ug/ml (0.00-0.50)
[2025-11-06 22:54] LABS: Ethanol* < 0.01 % (0.01-0.03)
[2025-11-06 22:56] LABS: HCG Qualitative Serum* Negative (Negative)
[2025-11-06 23:58] LABS: Fecal Occult Blood* Negative (Negative)
[2025-11-07] MEDS: PANTOPRAZOLE SODIUM 40 MG INJ IVP (00:04)
[2025-11-07 00:53] LABS: Hematocrit* 26.8 % (33.0-51.0); Hemoglobin* 8.2 gm/dL (12.0-16.0); Immature Granulocytes Pct Auto 1.1 %; Mean Corpuscular HGB Conc 31 gm/dL (32-36); Mean Corpuscular Hemoglobin 24 pg (26-34); Mean Corpuscular Volume 78 fL (80-100); RDW Coefficient of Variation % 16.3 % (11.5-15.5); Red Blood Count* 3.46 m/uL (4.00-5.20); White Blood Count* 12.49 K/uL (4.50-11.00)
[2025-11-07 00:56] LABS: Immature Granulocytes Abs Auto 0.10 K/uL (0.00-0.30); Lymphocytes Absolute Auto 0.70 K/uL (0.90-2.90); Slide Review Reflex No
== END 2025-11-07 03:37 | disposition other institution (70) ==
PROVIDERS: Emergency Provider Family Medicine; PCP Family Medicine
DX: K92.2 Gastrointestinal hemorrhage, unspecified (principal); R06.02 Shortness of breath; R07.89 Other chest pain; Z98.84 Bariatric surgery status
CPT/HCPCS: 36415; 71275; 74177; 80048; 80076; 81001; 82077; 82150; 82270; 83605; 83690; 83735; 84484; 84703; 85025; 85379; 93005; 96361; 96374; 96375; 99284; 99285; J1171; J2405; J2470; J7030; Q9967

== ENCOUNTER 2025-11-07 02:40 | Outpatient (CLI) | payer BC, SELFPAY | END 2025-11-07 02:41 | disposition home or self-care (01) | LOC: AMB 11-10 01:26 | PROVIDERS: PCP Family Medicine; Visit Provider Emergency Medicine | DX: K92.2 Gastrointestinal hemorrhage, unspecified (principal) | CPT/HCPCS: A0425; A0427 ==